=== PATIENT | male | born 1970 | race Caucasian/White ===

== ENCOUNTER 2016-11-09 09:25 | Inpatient (IN) | payer OTHER ==
--- NOTE | 2016-11-09 09:34 | EDPHY ---
H & P Time Seen by Provider: 11/09/16 09:31 HPI/ROS: CHIEF COMPLAINT: Right sided pain x5 days HISTORY OF PRESENT ILLNESS: 46-year-old male history of obesity, hypothyroid, arrives via ambulance complaining of right sided chest pain which is reproducible with light touch to the skin. The pain does not radiate. He has associated intermittent nausea and diarrhea. Denies: Dyspnea, back or flank pain, radiation of symptoms, neck or jaw pain, arm pain , rash, trauma, urinary abnormality. He has no known history of diabetes. Pre-hospital serum glucose was 247 PRIMARY CARE PROVIDER:[facility] REVIEW OF SYSTEMS: A ten point review of systems was performed and is negative with the exception of the items mentioned in the HPI PAST MEDICAL & SURGICAL HISTORY: Hypothyroid. SOCIAL HISTORY: nonsmoker. No drug use. No cocaine use. Works at [email or web address] PHYSICAL EXAM (Prior to examination, patient consented to physical exam, hands were washed and my usual and customary physical exam procedures followed) 1) GENERAL: obese, alert and oriented. Appears to be in no acute distress. 2) HEAD: Normocephalic, atraumatic 3) HEENT: Pupils equal, round, reactive to light bilaterally. Sclera anicteric. Nasopharynx, oropharynx, clear, no lesions. Ears bilaterally with normal tympanic membranes. 4) NECK: Full range of motion, no meningeal signs. No bruit 5) LUNGS: Clear auscultation bilaterally, no wheezes, no rhonchi, no retractions. He is tender to palpation with very light touch of the skin to the right mid axillary line of the chest. There is no visible rash visible or palpable abnormality. No vesicles. No erythema. No crepitus. 6) HEART: Regular rate and rhythm, no murmur, no heave, no gallop. 7) ABDOMEN: No guarding, no rebound, no focal tenderness, negative McBurney's, negative Ricks's, negative Rovsing's, negative peritoneal sign, 8) MUSCULOSKELETAL: Moving all extremities, no focal areas of tenderness, no obvious trauma. No peripheral edema or discoloration. 9) BACK: No CVA tenderness, no midline vertebral tenderness, no fluctuance, no step-off, no obvious trauma, no visual or palpable abnormality. 10) SKIN: No rash, no petechiae. 11) Psychiatric: Patient is oriented X 3, there is no agitation. DIFFERENTIAL DIAGNOSIS: In no particular order, including but not limited to myocardial ischemia, pulmonary embolus, chest wall pain, zoster, pleural inflammation and pulmonary infectious causes. Constitutional: Initial Vital Signs Temperature (C) 36.8 C 11/09/16 09:25 Heart Rate 123 H 11/09/16 09:25 Respiratory Rate 20 11/09/16 09:25 Blood Pressure 144/114 H 11/09/16 09:25 O2 Sat (%) 85 L 11/09/16 09:25 O2 Delivery Mode Nasal Cannula O2 (L/minute) 2 Allergies/Adverse Reactions: No Known Allergies Allergy (Unverified 11/09/16 09:34) Home Medications: Medication Instructions Recorded Levothyroxine [Synthroid 150 mcg 150 mcg PO DAILY06 11/09/16 (*)] Medical Decision Making - Diagnostics Imaging Results: Imaging Impressions Chest X-Ray 11/09/16 09:44 Impression: 1. Suspect airways disease although pulmonary markings are exaggerated by shallow inspiration. 2. There is borderline cardiac enlargement and equivocal pulmonary venous hypertension, possible low-grade congestive heart failure. Abdomen/Pelvis CT 11/09/16 11:37 Impression: 1. 8-mm proximal right ureteral stone with a punctate stone superior to it, causing moderate obstructive uropathy. 2. Bilateral nephrolithiasis including large branching stones in the right kidney. 3. Atrophy of the left kidney compared to the right. 4. Nonspecific adenopathy in the pelvis. If this has not been previously documented, recommend follow-up CT in three months. 5. Enlarged fatty liver. 6. Subacute, nondisplaced nearly healed anterior right sixth rib fracture. 7. Additional findings as above. Attention: This CT examination is specifically designed to evaluate patients who are clinically suspected of having acute obstructive uropathy. This examination does not use radiographic contrast, and as such, provides only a limited evaluation of the abdomen, pelvis and retroperitoneum. If there is further clinical suspicion for pathological conditions other than obstructive uropathy, a complete CT evaluation of the abdomen and pelvis utilizing intravenous and oral contrast should be considered. Images reviewed by myself ED Course/Re-evaluation: 9:34 a.m.: patient evaluated by myself, is complaining of right mid axillary pain reproducible with light palpation and no visible abnormality such as zoster. Symptoms have been occurring for several days already. Will obtain diagnostic data and re-evaluated. Discussed the case with secondary supervising physician Dr. Lujan 11:40 a.m.: Patient noted to have elevated creatinine of 6.6, unknown if acute or chronic as we have no comparison. 11:53 a.m.: Phone consultation with hospitalist Erica, admit to PCU Dr. Ramirez 12:10 p.m.: Phone consultation with hospitalist Dr. franco recommended starting the patient on 2 g of calcium gluconate, an ampule of bicarbonate 30 g of Kayexalate 12:48 p.m.: Phone consultation with Urology , he recommended interventional Radiology be contacted to have a percutaneous nephrostomy tube placed emergently 12:51 p.m.: Phone consultation with Dr. Chun interventional radiology who will plan on emergent percutaneous nephrostomy this afternoon - Data Points Laboratory Results: Laboratory Results 11/09/16 10:30 11/09/16 10:30 11/09/16 11/09/16 11/09/16 10:30 10:30 10:30 WBC RBC Hgb Hct MCV MCH MCHC RDW Plt Count MPV Neut % (Auto) Lymph % (Auto) Williamson % (Auto) Eos % (Auto) Baso % (Auto) Nucleat RBC Rel Count Absolute Neuts (auto) Absolute Lymphs (auto) Absolute Monos (auto) Absolute Eos (auto) Absolute Basos (auto) Absolute Nucleated RBC Immature Gran % Immature Gran # PT Pending INR Pending D-Dimer 0.81 ug/mLFEU H ug/mLFEU (0.00-0.50) Sodium 139 mEq/L mEq/L (134-144) Potassium 5.8 mEq/L H mEq/L (3.5-5.2) Chloride 105 mEq/L mEq/L (97-110) Carbon Dioxide 21 mEq/l L mEq/l (22-31) Anion Gap 13 mEq/L mEq/L (8-16) BUN 65 mg/dL H mg/dL (7-23) Creatinine 6.6 mg/dL H mg/dL (0.7-1.3) Estimated GFR 9 Glucose 204 mg/dL H mg/dL (70-100) Calcium 8.5 mg/dL mg/dL (8.5-10.4) Total Bilirubin 0.6 mg/dL mg/dL (0.1-1.4) Conjugated Bilirubin 0.5 mg/dL mg/dL (0.0-0.5) Unconjugated Bilirubin 0.1 mg/dL mg/dL (0.0-1.1) AST 20 IU/L IU/L (17-59) ALT 26 IU/L IU/L (21-72) Alkaline Phosphatase 115 IU/L IU/L (38-126) Troponin I < 0.012 ng/mL ng/mL (0-0.034) NT-Pro-B Natriuret Pep 73 pg/mL pg/mL (0-125) Total Protein 7.6 g/dL g/dL (6.3-8.2) Albumin 3.9 g/dL g/dL (3.5-5.0) Lipase 144.0 IU/L IU/L (23-300) TSH 166.000 uIU/mL H uIU/mL (0.465-4.680) 11/09/16 10:30 WBC 12.96 10^3/uL H 10^3/uL (3.80-9.50) RBC 5.67 10^6/uL 10^6/uL (4.40-6.38) Hgb 14.4 g/dL g/dL (13.7-17.5) Hct 47.1 % % (40.0-51.0) MCV 83.1 fL fL (81.5-99.8) MCH 25.4 pg L pg (27.9-34.1) MCHC 30.6 g/dL L g/dL (32.4-36.7) RDW 15.8 % H % (11.5-15.2) Plt Count 316 10^3/uL 10^3/uL (150-400) MPV 8.9 fL fL (8.7-11.7) Neut % (Auto) 70.5 % % (39.3-74.2) Lymph % (Auto) 15.5 % % (15.0-45.0) Williamson % (Auto) 8.5 % % (4.5-13.0) Eos % (Auto) 4.1 % % (0.6-7.6) Baso % (Auto) 0.6 % % (0.3-1.7) Nucleat RBC Rel Count 0.0 % % (0.0-0.2) Absolute Neuts (auto) 9.14 10^3/uL H 10^3/uL (1.70-6.50) Absolute Lymphs (auto) 2.01 10^3/uL 10^3/uL (1.00-3.00) Absolute Monos (auto) 1.10 10^3/uL H 10^3/uL (0.30-0.80) Absolute Eos (auto) 0.53 10^3/uL H 10^3/uL (0.03-0.40) Absolute Basos (auto) 0.08 10^3/uL 10^3/uL (0.02-0.10) Absolute Nucleated RBC 0.00 10^3/uL 10^3/uL (0-0.01) Immature Gran % 0.8 % % (0.0-1.1) Immature Gran # 0.10 10^3/uL 10^3/uL (0.00-0.10) PT INR D-Dimer Sodium Potassium Chloride Carbon Dioxide Anion Gap BUN Creatinine Estimated GFR Glucose Calcium Total Bilirubin Conjugated Bilirubin Unconjugated Bilirubin AST ALT Alkaline Phosphatase Troponin I NT-Pro-B Natriuret Pep Total Protein Albumin Lipase TSH Departure - Departure Disposition: [facility] Acute Clinical Impression: Uropathy, obstructive, Hyperkalemia, Hyperglycemia, Hypovolemia Acute renal failure Qualifiers: Acute renal failure type: unspecified Qualified Code(s): N17.9 - Acute kidney failure, unspecified Condition: Fair
[2016-11-09 10:47] LABS: % IMMATURE GRANULYOCYTES 0.8 % (0.0-1.1); ADD DIFF? NO; ADD MORPH? NO; ADD SCAN? NO; ATYPICAL LYMPHOCYTE FLAG 0 (0-99); FRAGMENT RBC FLAG 0 (0-99); HEMATOCRIT 47.1 % (40.0-51.0); HEMOGLOBIN 14.4 g/dL (13.7-17.5); LEFT SHIFT FLG 10 (0-99); LIPEMIA HEMOLYSIS FLAG 80 (0-99); MEAN CELL HEMOGLOBIN 25.4 pg (27.9-34.1); MEAN CELL HEMOGLOBIN CONCENTR. 30.6 g/dL (32.4-36.7); MEAN CELL VOLUME 83.1 fL (81.5-99.8); MEAN PLATELET VOLUME 8.9 fL (8.7-11.7); PLATELET CLUMPS FLAG 0 (0-99); PLATELET COUNT 316 10^3/uL (150-400); RED BLOOD CELL COUNT 5.67 10^6/uL (4.40-6.38); RED CELL DISTRIBUTION WIDTH 15.8 % (11.5-15.2)
--- NOTE | 2016-11-09 10:48 | CPEKG ---
Heart Rate: 119 RR Interval: 504 P-R Interval: 152 QRSD Interval: 112 QT Interval: 332 QTC Interval: 468 P Millwood: 46 QRS Millwood: 58 T Wave Millwood: 66 EKG Severity - ABNORMAL ECG - EKG Impression: SINUS TACHYCARDIA EKG Impression: NONSPECIFIC INTRAVENTRICULAR CONDUCTION DELAY Electronically Signed By: Thai Rowe 10-Nov-2016 08:05:02
[2016-11-09 11:19] LABS: ALANINE AMINOTRANSFERASE 26 IU/L (21-72); ALBUMIN 3.9 g/dL (3.5-5.0); ALKALINE PHOSPHATASE 115 IU/L (38-126); ANION GAP 13 mEq/L (8-16); ASPARTATE AMINOTRANSFERASE 20 IU/L (17-59); BILIRUBIN,TOTAL 0.6 mg/dL (0.1-1.4); BILIRUBIN-CONJUGATED 0.5 mg/dL (0.0-0.5); BILIRUBIN-UNCONJUGATED 0.1 mg/dL (0.0-1.1); CALCIUM 8.5 mg/dL (8.5-10.4); CARBON DIOXIDE 21 mEq/l (22-31); CHLORIDE 105 mEq/L (97-110); CREATININE 6.6 mg/dL (0.7-1.3); GLOMERULAR FILTRATION RATE 9; GLUCOSE 204 mg/dL (70-100); POTASSIUM 5.8 mEq/L (3.5-5.2); SODIUM 139 mEq/L (134-144); TOTAL PROTEIN 7.6 g/dL (6.3-8.2)
[2016-11-09 11:32] LABS: TROPONIN I < 0.012 ng/mL (0-0.034)
[2016-11-09] MEDS ORDERED: CALCIUM GLUCONATE 2 GM in D5W 50 ML IV ONE (12:09)
[2016-11-09] MEDS ORDERED: SODIUM POLY SULF 15 GM/60 ML BOTTLE PO ONE (12:10)
[2016-11-09] MEDS ORDERED: SODIUM BICARBONATE 50 MEQ/50 ML SYR IVP ONE (12:11)
[2016-11-09] MEDS ORDERED: NS 1,000 ML IV ONE ×2 (12:12→12:39)
[2016-11-09] MEDS ORDERED: SODIUM POLY SULF 15 GM/60 ML BOTTLE ONE (12:21)
[2016-11-09] MEDS ORDERED: TEMAZEPAM 15 MG CAP PO PRN (12:48)
[2016-11-09] MEDS ORDERED: ONDANSETRON DISINTEGRATING 4 MG TAB PO PRN (12:48)
[2016-11-09] MEDS ORDERED: oxyCODONE IR 5 MG TAB PO PRN (12:48)
[2016-11-09 12:57] LABS: INR 1.02 (0.83-1.16); PROTIME(PATIENT) 13.3 SEC (12.0-15.0)
--- NOTE | 2016-11-09 13:24 | GHP ---
[f rep st] HISTORY AND PHYSICAL DATE OF ADMISSION: 11/09/2016 CHIEF COMPLAINT: Right-sided flank pain. HISTORY OF PRESENT ILLNESS: This is a 46-year-old man, with a history of hypothyroidism who presents with right-sided flank pain. Pain started about a day ago, described as sharp. He has had somewhat decreased p.o. intake over the past few days. He has had no nausea, and no vomiting. He has had a few episodes of diarrhea. He has continued to urinate normally. He does not have any known diabetes. He has been diagnosed with high blood pressure, though has been off medications for the past few years. He took 2 Advil 2 days ago but has not taken any other NSAIDs. He is not taking anything other than Synthroid , including any other supplements. He has not noticed any dysuria, hematuria, or frothy-looking urine either. He has never had any kidney problems. I reviewed records from [facility] in 2012. His creatinine was 0.9 in June of 2012. PAST MEDICAL HISTORY/PAST SURGICAL HISTORY: Hypothyroid. MEDICATIONS: Synthroid. ALLERGIES: No known drug allergies. SOCIAL HISTORY: He occasionally drinks alcohol, he does not smoke. He works at [employer]. FAMILY HISTORY: His mother had renal problems, he is not sure of the etiology of this. REVIEW OF SYSTEMS: A 10-point review of systems is conducted and is negative except per HPI. PHYSICAL EXAM: VITAL SIGNS: Blood pressure 145/90, heart rate 108, respirations 22, saturating 92% on room air. He is afebrile. GENERAL: The patient is a pleasant man who appears comfortable, in no acute distress. HEENT : Shows him to be normocephalic, atraumatic. CARDIOVASCULAR: Regular rate and rhythm, no murmurs, rubs or gallops. PULMONARY: Lungs clear to auscultation bilaterally. CHEST: Shows him to be mildly tender to palpation over the right flank: ABDOMEN: Shows an obese abdomen. It is soft, otherwise nontender, no hepatosplenomegaly. SKIN: Shows no rash. : No Carter. NEUROLOGIC: Shows him to be alert and oriented x3, he is moving all extremities. PSYCHIATRIC: Shows a normal mood and affect. LABORATORY DATA: White count is 12.96, there is no left shift. D-dimer is 0.81 , potassium is 5.8, creatinine is 6.6, BUN is 65, TSH is 166. DATA: 1. I discussed this with Te Taylor, who will admit to med/surg. 2. I personally viewed and interpreted his abdominal CT, as well as reviewed the radiologist's report. It shows an 8 mm right ureteral stone. Left kidney is atrophic. He has a subacute right 6th rib fracture. He has an enlarged fatty liver. He has some adenopathy in his pelvis. 3. EKG shows sinus rhythm. He has borderline 1st degree AV block. There are no peaked T-waves, no QRS widening. 4. Chest x-ray shows borderline cardiomegaly, mildly increased pulmonary vasculature. IMPRESSION AND PLAN: A 46-year-old man with renal failure. 1. Renal failure, mild hyperkalemia: I suspect that this is due to right- sided obstructive uropathy with an atrophic left kidney. Also consider prerenal etiologies. He did take ibuprofen 2 days ago, but only 400 mg per his report. Urology has been consulted. Agree with placing an emergent, right- sided percutaneous nephrostomy tube to decompress the right kidney. Urinalysis is pending, including urine electrolytes. We will treat his hyperkalemia emergently with calcium gluconate, sodium bicarb, Kayexalate and intravenous fluids. We will recheck a basic metabolic panel immediately after he gets IV fluids. If his creatinine is not improving we will consult Nephrology. At this point I do not think he needs emergent dialysis. 2. Markedly hypothyroid with significantly elevated TSH: I have checked a T3 and T4. I note that he is on Synthroid. 3. Hyperglycemia: We will check an A1c. Would certainly predispose him to renal issues if he has diabetes, which I suspect he does. 4. Pelvic adenopathy: We will need a followup CT scan in 3 months. 5. Hepatic steatosis. 6. Venous thromboembolism risk is low. We will not give him prophylactic Lovenox. Addendum: - no improvement in renal function with IVF, discussed with Dr Rowe - she will consult - TSH and T3T4 reviewed - also discussed with Dr Díaz of endo; need to confirm with patient his compliance with synthroid and how to take it appropriately; Dr Díaz does not recommend IV synthroid in the absence of severe hypothyroid symptoms; should f/u endo as outpatient /[id number]/MODL MTDD
[2016-11-09] MEDS ORDERED: cefTRIAXone 2 GM in D5W 50 ML IV ONE (13:49)
[2016-11-09 14:40] LABS: ANION GAP 16 mEq/L (8-16); CALCIUM 9.2 mg/dL (8.5-10.4); CARBON DIOXIDE 23 mEq/l (22-31); CHLORIDE 101 mEq/L (97-110); CREATININE 6.7 mg/dL (0.7-1.3); GLOMERULAR FILTRATION RATE 9; GLUCOSE 212 mg/dL (70-100); POTASSIUM 5.8 mEq/L (3.5-5.2); SODIUM 140 mEq/L (134-144)
[2016-11-09] MEDS: NS 1,000 ML IV SCH (14:48)
[2016-11-09] MEDS ORDERED: DEXMEDETOMIDINE HCL 200 MCG in NS 50 ML IV ONE (15:00)
[2016-11-09] MEDS ORDERED: ALBUTEROL 3 ML DEYVIAL IH PRN (15:36)
[2016-11-09] MEDS ORDERED: NALOXONE HCL 0.4 MG/ML INJ ONE (16:19)
[2016-11-09] MEDS ORDERED: fentaNYL 100 MCG/2 ML INJ ONE ×2 (16:19→17:25)
[2016-11-09 16:36] LABS: HEMOGLOBIN A1C 9.8 % (4.0-6.0)
[2016-11-09] MEDS ORDERED: IOPAMIDOL (ISOVUE-300) 100 ML BTL ONE (16:49)
[2016-11-09] MEDS ORDERED: LIDOCAINE 1% 300 MG/30 ML SDV ONE (16:49)
[2016-11-09] MEDS ORDERED: MEPERIDINE 25 MG/ML SYR ONE (17:05)
--- NOTE | 2016-11-09 18:02 | POSTOPPROG ---
Post Op Note Date of Operation: 11/09/16 Surgeon: Vahe Chun Anesthesia: IV Sedation Pre-op Diagnosis: Obstructive right ureteral stone. Renal failure. Post-op Diagnosis: Same Indication: Hyperkalemia, renal failure. Atrophic left kidney. Procedure: Percutaneous right nephrostomy Findings: Occluded right ureter. Morbid obesity. Inf/Abcess present in the surg proc area at time of surgery?: No EBL: Minimal Complications: 0 Drains: Nephrostomy (10 F) Specimen(s): 10 ml bloody urine to lab for microbiology.
[2016-11-09 19:36] LABS: ANION GAP 12 mEq/L (8-16); CALCIUM 8.4 mg/dL (8.5-10.4); CARBON DIOXIDE 23 mEq/l (22-31); CHLORIDE 106 mEq/L (97-110); CREATININE 6.1 mg/dL (0.7-1.3); GLOMERULAR FILTRATION RATE 10; GLUCOSE 189 mg/dL (70-100); POTASSIUM 5.4 mEq/L (3.5-5.2); SODIUM 141 mEq/L (134-144)
[2016-11-10 04:43] LABS: ABSOLUTE IMMATURE GRANULOCYTES 0.13 10^3/uL (0.00-0.10); ADD DIFF? NO; ADD MORPH? YES; ADD SCAN? NO; ATYPICAL LYMPHOCYTE FLAG 0 (0-99); FRAGMENT RBC FLAG 0 (0-99); HEMATOCRIT 49.2 % (40.0-51.0); HEMOGLOBIN 14.2 g/dL (13.7-17.5); LEFT SHIFT FLG 0 (0-99); LIPEMIA HEMOLYSIS FLAG 70 (0-99); MEAN CELL HEMOGLOBIN 25.1 pg (27.9-34.1); MEAN CELL VOLUME 87.1 fL (81.5-99.8); MEAN PLATELET VOLUME 9.1 fL (8.7-11.7); PLATELET CLUMPS FLAG 0 (0-99); PLATELET COUNT 351 10^3/uL (150-400); RED BLOOD CELL COUNT 5.65 10^6/uL (4.40-6.38)
[2016-11-10 04:57] LABS: MEAN CELL HEMOGLOBIN CONCENTR. 28.9 g/dL (32.4-36.7)
[2016-11-10 05:40] LABS: PLATELET ESTIMATE ADEQUATE (ADEQ)
[2016-11-10 05:41] LABS: HYPOCHROMIA 2+; MICROCYTES 2+
[2016-11-10] MEDS: LEVOTHYROXINE 150 MCG TAB PO SCH (06:28)
[2016-11-10] MEDS: ACETAMINOPHEN 325 MG TAB PO PRN ×2 (09:40→17:13)
[2016-11-10 09:54] LABS: ANION GAP 14 mEq/L (8-16); CALCIUM 8.3 mg/dL (8.5-10.4); CARBON DIOXIDE 20 mEq/l (22-31); CHLORIDE 112 mEq/L (97-110); GLOMERULAR FILTRATION RATE 16; GLUCOSE 174 mg/dL (70-100); POTASSIUM 5.8 mEq/L (3.5-5.2); SODIUM 146 mEq/L (134-144)
[2016-11-10 10:06] LABS: COLOR YELLOW; LEUKOCYTE ESTERASE,URINE NEGATIVE (NEGATIVE); NITRITE,URINE NEGATIVE (NEGATIVE)
[2016-11-10 10:13] LABS: MUCUS TRACE /lpf (NONE-1+); RBC,URINE 25-50 /hpf (0-3)
--- NOTE | 2016-11-10 12:31 | GHP ---
[f rep st] HISTORY AND PHYSICAL DATE OF ADMISSION: 11/09/2016 REASON FOR CONSULTATION: 1. Renal failure. 2. Hypernatremia. 3. Hyperkalemia. RECOMMENDATIONS: 1. Restrict potassium in diet. 2. Follow response to the percutaneous nephrostomy. 3. Evaluate for underlying chronic kidney disease. 4. Follow for recovery. HISTORY: The patient is a 46-year-old male admitted yesterday through the emergency room with right -sided flank pain. The patient describes onset of symptoms approximately 5 days ago. He took a cou ple Advil because of the pain, but has not been doing so chronically. The patient has had poor oral intake, but he states he has been drinking fluids and urinating normally during this time. In the emergency room he was found to have an elevated creatinine of 6.6 with hyperkalemia, with a potassiu m of 5.8. Renal imaging showed an obstructing right ureteral stone, and an underlying atrophic left kidney. H e underwent a right percutaneous nephrostomy with Dr. Chun yesterday afternoon. With placement of this nephrostomy tube the patient has made copious urine. PAST MEDICAL HISTORY: For hypothyroidism and obesity. He states that he had thyroid problems that resulted in an enlarged heart and swelling, as well as hypertension back in 2012 or 2013. His medic al care has been provided through [facility]. His hospitalizations in the past have been at [facility]. We have no labs in the computer here, but per the admission H and P, his c reatinine was 0.9 back in June of 2012. The patient is morbidly obese. It sounds like he has been diagnosed with sleep apnea here in the [facility], and is currently on CPAP therapy as he is resting in bed. This is a new diagnosis for him. Past medical history as described, obesity, hypothyroidism, sleep apnea, enlarged heart, hypertensio n, volume overload with edema. PAST SURGICAL HISTORY: For tonsils at age 3 or 4. MEDICATIONS: Outpatient medications include Synthroid. SOCIAL HISTORY: He was born in [place], [place]. He moved to [place] at age 13. 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 He has a sister who is a teacher in [employer], who is involve d in his life. His brother works in parts at the [employer]. His mother and father passed carrie y. His father had complications of ulcers and at around age 72. His mother evidently had kidn ey problems and COPD. It sounds like her kidney problems may have been related to Aleve. She at age 70. He lives in an apartment here in [place]. It sounds like he gets around by bus. ALLERGIES: No known documented allergies. PHYSICAL EXAMINATION: VITAL SIGNS: He weighs 127 kilograms, temperature 36.7, pulse 103, respirati ons 18, blood pressure 123/90. APPEARANCE: A morbidly obese male, lying in bed. HEENT: Remarkabl e for facial plethora. NECK: Unremarkable. HEART: Regular with no extra heart sounds. LUNGS: G rossly clear. ABDOMEN: Obese but benign. EXTREMITIES: With edema that is trace in nature, with c hronic venous stasis changes. LABORATORY DATA: Labs initially showed a BUN of 66 with a creatinine of 6.6 with a potassium of 5.8 . Labs have just come back, have shown his BUN down to 40 with a creatinine of 4, but has developed some hypernatremia with a sodium of 146 and a potassium remaining elevated at 5.8. His thyroid shakeel ears to be inadequately replaced with TSH being elevated at 166, with free T4 being low. This sugge sts significant noncompliance with his thyroid replacement medication. Urinalysis shows blood witho ut protein, white count of 12.8 thousand, hematocrit of 49. ASSESSMENT: 1. Renal failure. On CAT scan he had obstructing right renal stones with bilateral nephrolithiasis . Left kidney is small compared to the right. The degree of asymmetry is not clearly stated on the CT report. Having abnormal anatomy in this setting is somewhat expected. The patient had a comple tely normal kidney on the left. This type of obstruction on the right would not be expected to caus e such an elevation in the patient's creatinine. Nonetheless, he did have a normal creatinine back a few years ago as documented in the history and physical by Dr. Ramirez. We will see if we can get some more recent serum creatinine measurements from his physicians at [facility]. 2. I suspect he has a history of underlying chronic kidney disease. We will see how good his creat inine gets with the above interventions. 3. Given his lack of proteinuria, I would simply check a serum protein electrophoresis and serum li ght chains to evaluate his chronic kidney disease. I would consider additional renal imaging if his creatinine does not come all the way back down to his prior baseline, just to get a better idea of his kidney size. 4. We should avoid nonsteroidals. Potassium sparing diuretics and IV contrast should be avoided. Given his improvement with nephrostomy placement, and the current electrolyte changes, I am going to increase the rate of fluid replacement the patient is receiving. 5. He is hyperkalemic. We will put him on a low-potassium diet. 6. He has an elevated TSH. We will see how he responds to his Synthroid currently, that is being g iven orally. Copy requested to: Muna Vidal /[id number]/MODL
[2016-11-10] MEDS ORDERED: SODIUM POLY SULF 15 GM/60 ML BOTTLE PO ONE (15:37)
--- NOTE | 2016-11-10 15:39 | HOSPPROG ---
Hospitalist Progress Note Assessment/Plan: # acute kidney injury- creatinine >6 at presentation- suspect some underlying CKD complicated by obstructive uropathy Urine output has been greater than 2 L overnight- oxygen saturations 93% on 2 L - percutaneous nephrostomy placed overnight - patient receiving IV fluid resuscitation - workup initiated for chronic kidney disease - nephrology following # hyperkalemia- secondary to acute kidney injury- potassium remains 5.8 this morning - 15 p.o. Kayexalate now - continue to monitor on telemetry - hopeful for improvement as RAFA resolves # acute obstructive uropathy- status post percutaneous nephrostomy - urology contacted on admission will consult # obstructive sleep apnea- providing CPAP while inpatient - will need polysomnography after discharged # prophylaxis- will start heparin subcu secondary to renal dysfunction # diet- change to renal # disposition greater than 2 midnights as the patient remains acutely quite ill requiring cardiac monitoring and treatment Have discussed the case with Nephrology will continue monitoring post placement of the percutaneous nephrostomy Subjective: Denies shortness of breath Objective: Vital Signs Temp Pulse Resp BP Pulse Ox 36.8 C 93 16 139/90 H 93 11/10/16 15:31 11/10/16 15:31 11/10/16 15:31 11/10/16 15:31 11/10/16 15:31 Microbiology 11/09/16 17:55 Gram Stain - Final Other - Aspirate Laboratory Results 11/10/16 03:39 11/10/16 09:08 11/09/16 11/10/16 11/11/16 05:59 05:59 05:59 Intake Total 3400 860 Output Total 2725 1175 Balance 675 -315 PT 13.3 SEC (12.0-15.0) 11/09/16 10:30 INR 1.02 (0.83-1.16) 11/09/16 10:30 - Physical Exam Constitutional: obese Eyes: anicteric sclera Ears, Nose, Mouth, Throat: moist mucous membranes Cardiovascular: regular rate and rhythym, tachycardia Respiratory: no respiratory distress, no rales or rhonchi Gastrointestinal: normoactive bowel sounds, soft, non-tender abdomen Genitourinary: no bladder fullness Skin: warm, normal color Musculoskeletal: No asymmetric calves Neurologic: AAOx3 Psychiatric: interacting appropriately Lymph, Heme, Immunologic: no cervical LAD ICD10 Worksheet Patient Problems: Problems Problem Status Onset Acute renal failure Acute Hyperglycemia Acute Hyperkalemia Acute Hypovolemia Acute Uropathy, obstructive Acute
[2016-11-10 17:26] LABS: ALBUMIN 3.5 g/dL (3.5-5.0); CALCIUM 8.4 mg/dL (8.5-10.4); CARBON DIOXIDE 24 mEq/l (22-31); CHLORIDE 106 mEq/L (97-110); CREATININE 3.3 mg/dL (0.7-1.3); GLOMERULAR FILTRATION RATE 20; GLUCOSE 166 mg/dL (70-100); SODIUM 143 mEq/L (134-144)
[2016-11-10 17:31] LABS: ANION GAP 13 mEq/L (8-16)
--- NOTE | 2016-11-10 19:08 | SOAPPROG ---
SOAP Progress Note Assessment/Plan: Assessment:Plan: ARF-baseline in June 2012 normal at 0[address] Ramirez's report -coming down better with increase in IVF -CPM Hyperkalemia-better with above -also received additional kayexalate from hospital team -I would manage any further increases with fluid adjustments 11/10/16 19:07 Objective: Vital Signs Temp Pulse Resp BP Pulse Ox 36.8 C 93 16 139/90 H 93 11/10/16 15:31 11/10/16 15:31 11/10/16 15:31 11/10/16 15:31 11/10/16 15:31 Microbiology 11/09/16 17:55 Gram Stain - Final Other - Aspirate Laboratory Results 11/10/16 03:39 11/10/16 16:12 11/09/16 11/10/16 11/11/16 05:59 05:59 05:59 Intake Total 3400 2360 Output Total 2725 1500 Balance 675 860 PT 13.3 SEC (12.0-15.0) 11/09/16 10:30 INR 1.02 (0.83-1.16) 11/09/16 10:30 ICD10 Worksheet Patient Problems: Problems Problem Status Onset Acute renal failure Acute Hyperglycemia Acute Hyperkalemia Acute Hypovolemia Acute Uropathy, obstructive Acute
[2016-11-10] MEDS: HEPARIN 5,000 UNIT/0.5 ML SYR SC SCH (21:08)
[2016-11-10] MEDS: NS 1,000 ML IV SCH (21:08)
[2016-11-11] MEDS: NS 1,000 ML IV SCH ×4 (02:00→20:12)
[2016-11-11 04:46] LABS: ALBUMIN 3.3 g/dL (3.5-5.0); ANION GAP 8 mEq/L (8-16); CALCIUM 7.7 mg/dL (8.5-10.4); CARBON DIOXIDE 26 mEq/l (22-31); CHLORIDE 106 mEq/L (97-110); CREATININE 2.5 mg/dL (0.7-1.3); GLOMERULAR FILTRATION RATE 28; GLUCOSE 158 mg/dL (70-100); POTASSIUM 4.8 mEq/L (3.5-5.2); SODIUM 140 mEq/L (134-144)
[2016-11-11] MEDS: HEPARIN 5,000 UNIT/0.5 ML SYR SC SCH ×3 (06:01→21:22)
[2016-11-11] MEDS: LEVOTHYROXINE 150 MCG TAB PO SCH (06:02)
--- NOTE | 2016-11-11 08:43 | SOAPPROG ---
MIAH Progress Note Assessment/Plan: Assessment:Plan: ARF-baseline in June 2012 normal at [address] Ramirez's report -coming down better with increase in IVF -CPM -expect creatinine to be 2 or less tomorrow -he could have outpatient renal follow up at that point to ensure he has complete recover -he should be seen in Nephrology 1-2 weeks after the stone is treated and the perc has been removed Nephrolithiasis with obstruction-responding nicely to percutaneous nephrostomy -he will need to be set up with Urology for further management of stone and perc -discussed with RN and patient Hyperkalemia-better with above -also received additional kayexalate from hospital team -I would manage any further increases with fluid adjustments -remains stable today Pulmonary-severe hypoxia at night -will need to be set up with outpatient therapy Dispo-home when above issues resolved, tomorrow at the earliest -patient eager for discharge 11/11/16 08:39 Subjective: feels okay Objective: Vital Signs Temp Pulse Resp BP Pulse Ox 37.1 C 79 20 132/87 H 94 11/11/16 07:50 11/11/16 07:50 11/11/16 07:50 11/11/16 07:50 11/11/16 07:50 Microbiology 11/09/16 17:55 Gram Stain - Final Other - Aspirate Laboratory Results 11/10/16 03:39 11/11/16 03:35 11/10/16 11/11/16 11/12/16 05:59 05:59 05:59 Intake Total 3400 6733 Output Total 2725 2750 725 Balance 675 3983 -725 PT 13.3 SEC (12.0-15.0) 11/09/16 10:30 INR 1.02 (0.83-1.16) 11/09/16 10:30 Physical Exam - Physical Exam General Appearance: alert, no apparent distress, obese EENT: normal ENT inspection, other (facial plethora) Neck: normal inspection Respiratory: lungs clear, normal breath sounds, No respiratory distress Cardiac/Chest: regular rate, rhythm Abdomen: normal bowel sounds, distended Skin: other (umchanged) ICD10 Worksheet Patient Problems: Problems Problem Status Onset Acute renal failure Acute Hyperglycemia Acute Hyperkalemia Acute Hypovolemia Acute Uropathy, obstructive Acute
--- NOTE | 2016-11-11 11:59 | HOSPPROG ---
Hospitalist Progress Note Assessment/Plan: # acute kidney injury- creatinine 6 at presentation-> 2.5 this am Suspect some underlying CKD complicated by obstructive uropathy- percutaneous nephrostomy placed on admit Urine output has been greater than 2 L again overnight- oxygen saturations 96 % on 3 L - patient receiving aggressive IV fluid resuscitation - workup initiated for chronic kidney disease - nephrology following - nephrostomy in place # hyperkalemia- secondary to acute kidney injury- potassium 5.8 received kayexelate x 1 and IVF overnight - > 4.8 this am - continue to monitor daily # acute obstructive uropathy- status post percutaneous nephrostomy CT abdomen (personally reviewed and interpreted) 8mm proximal right ureteral stone - urology Dr. Ang contacted on admission # obstructive sleep apnea- providing CPAP while inpatient - will need polysomnography after discharged # hyperglycemia - HBA1c pending # prophylaxis- will start heparin subcutaneous secondary to renal dysfunction # diet- change to renal # disposition greater than 2 midnights as the patient remains acutely quite ill requiring cardiac monitoring and treatment of RAFA Have discussed the case with RN - we will encourage increased activity today as the beginning preparations for disposition Subjective: feeling better today Objective: Vital Signs Temp Pulse Resp BP Pulse Ox 36.4 C 101 H 20 143/84 H 96 11/11/16 11:14 11/11/16 11:14 11/11/16 11:14 11/11/16 11:14 11/11/16 11:14 Microbiology 11/09/16 17:55 Gram Stain - Final Other - Aspirate Laboratory Results 11/10/16 03:39 11/11/16 03:35 11/10/16 11/11/16 11/12/16 05:59 05:59 05:59 Intake Total 3400 6733 860 Output Total 2725 2750 1550 Balance 675 3983 -690 PT 13.3 SEC (12.0-15.0) 11/09/16 10:30 INR 1.02 (0.83-1.16) 11/09/16 10:30 - Physical Exam Constitutional: no apparent distress, obese Eyes: anicteric sclera Ears, Nose, Mouth, Throat: moist mucous membranes Cardiovascular: regular rate and rhythym Respiratory: no respiratory distress, no rales or rhonchi Gastrointestinal: normoactive bowel sounds Genitourinary: no bladder fullness Skin: warm Musculoskeletal: No asymmetric calves Neurologic: AAOx3 Psychiatric: interacting appropriately Lymph, Heme, Immunologic: no cervical LAD ICD10 Worksheet Patient Problems: Problems Problem Status Onset Acute renal failure Acute Hyperglycemia Acute Hyperkalemia Acute Hypovolemia Acute Uropathy, obstructive Acute
[2016-11-12] MEDS: ACETAMINOPHEN 325 MG TAB PO PRN (04:01)
[2016-11-12 04:43] LABS: ALBUMIN 3.4 g/dL (3.5-5.0); ANION GAP 8 mEq/L (8-16); CALCIUM 8.2 mg/dL (8.5-10.4); CARBON DIOXIDE 25 mEq/l (22-31); CHLORIDE 107 mEq/L (97-110); CREATININE 1.9 mg/dL (0.7-1.3); GLOMERULAR FILTRATION RATE 38; GLUCOSE 155 mg/dL (70-100); POTASSIUM 5.1 mEq/L (3.5-5.2); SODIUM 140 mEq/L (134-144)
[2016-11-12] MEDS: HEPARIN 5,000 UNIT/0.5 ML SYR SC SCH (05:28)
[2016-11-12] MEDS: LEVOTHYROXINE 150 MCG TAB PO SCH (05:28)
--- NOTE | 2016-11-12 09:52 | PDIAF ---
- Diagnosis Diagnosis: RAFA Code Status: Full Code - Medication Management Discharge Medications: Medications to Continue on Transfer Levothyroxine [Synthroid 150 mcg (*)] 150 mcg PO DAILY06 11/09/16 [Last Taken ] Discharge Medications: Refer to the Discharge Home Medication list for PRN reason. - Orders Services needed: Home Care, Registered Nurse Home Care Face to Face: I certify that this patient was under my care and that I had the required [id number] encounter meeting the encounter requirements on the discharge day. My findings support the fact that the patient is homebound as defined in CMS Chapter 7 Medicare Benefits Manual 30.1.1, The condition of the patient is such that there exists a normal inability to leave home and consequently, leaving home would require a considerable and taxing effort. Diet Recommendation: other (renal diet) Diet Texture: Regular Texture Diet Equipment: Daily flush of nephrostomy tube - Labs/Radiology BMP Date: 11/15/16 (call results to Sorin bell) - Follow Up Care Current Providers and Referrals: Patient,NotPresent [Unknown] - As per Instructions Macho Rowell MD [Medical Doctor] - Les Ang MD [Medical Doctor] -
[2016-11-12 11:46] VITALS: BP 146/92; PULSE 84; RESP 18; TEMP 99.1
[2016-11-12 12:23] VITALS: O2SAT 86
--- NOTE | 2016-11-12 13:39 | SOAPPROG ---
SOAP Progress Note Assessment/Plan: Assessment:Plan: ARF-baseline in June 2012 normal at [address] Ramirez's report -coming down better with increase in IVF -down from 2.5 to 1.9 overnite -expect creatinine to be 2 or less tomorrow -he will need outpatient renal follow up at that point to ensure he has complete recovery -he should be seen in Nephrology 1-2 weeks after the stone is treated and the perc has been removed Nephrolithiasis with obstruction-responding nicely to percutaneous nephrostomy -he has been set up with Urology for further management of stone and perc -discussed with RN and patient -he can place the nephrostomy bag in an apron under his clothes for support Hyperkalemia-resolved -remains stable today Pulmonary-severe hypoxia at night -will need to be set up with outpatient therapy Dispo-home today -patient eager for discharge and to go back to work -he feels he can return to his normal duties with minimal accommodation -I gave him a note for work 11/12/16 13:38 Subjective: feels okay, wants to work tomorrow Objective: Vital Signs Temp Pulse Resp BP Pulse Ox 37.3 C 84 18 146/92 H 86 L 11/12/16 11:45 11/12/16 11:45 11/12/16 11:45 11/12/16 11:45 11/12/16 12:23 Microbiology 11/09/16 17:55 Gram Stain - Final Other - Aspirate Laboratory Results 11/10/16 03:39 11/12/16 03:45 11/11/16 11/12/16 11/13/16 05:59 05:59 05:59 Intake Total 6733 1560 360 Output Total 2750 4675 550 Balance 3983 -3115 -190 PT 13.3 SEC (12.0-15.0) 11/09/16 10:30 INR 1.02 (0.83-1.16) 11/09/16 10:30 Physical Exam - Physical Exam General Appearance: alert, no apparent distress, obese EENT: normal ENT inspection Neck: normal inspection Respiratory: lungs clear, normal breath sounds, No respiratory distress Cardiac/Chest: regular rate, rhythm Abdomen: normal bowel sounds, distended Extremities: swelling (unchanged) ICD10 Worksheet Patient Problems: Problems Problem Status Onset Acute renal failure Acute Hyperglycemia Acute Hyperkalemia Acute Hypovolemia Acute Uropathy, obstructive Acute
--- NOTE | 2016-11-12 15:13 | GDS ---
[f rep st] DISCHARGE SUMMARY DISCHARGE DIAGNOSES: 1. Acute kidney injury. 2. Suspected chronic kidney disease. 3. Acute obstructive uropathy secondary to right ureteral stone, status post percutaneous nephrosto my. 4. Suspected obstructive sleep apnea. 5. Severe hyperkalemia, resolved. 6. Hyperglycemia. HISTORY OF PRESENT ILLNESS: A 46-year-old male who presented on 11/09/2016, with complaints of righ t-sided flank pain. For details of patient's initial presentation, please see the history and physi monique dated 11/09/2016. CONSULTATIVE SERVICES: Nephrology. PROCEDURES: On 11/09/2016, patient underwent percutaneous nephrostomy drain placement. HOSPITAL COURSE BY ISSUE: 1. Acute kidney injury. The patient presented with a creatinine greater than 6, thought likely sec ondary to obstructive uropathy and hypovolemia. Patient was aggressively fluid resuscitated and had excellent urine output status post percutaneous nephrostomy placement. The patient's creatinine on the day of disposition has improved to 1.9. He will have laboratories checked next week and called to Dr. Rowell. He is to remain hydrated and have his nephrostomy followed in Dr. Ang's office po st disposition to address his right ureteral stone. 2. Acute obstructive uropathy. As above, the patient is being discharged with a percutaneous nephr ostomy drain and follow with outpatient Urology. 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 He will call his office for a followup appointment. 3. Suspected obstructive sleep apnea, as well as obesity hypoventilation syndrome. The patient was quite hypoxic in the evenings here. We did initiate CPAP in the hospital. He is being discharged with recommendations for outpatient referral for polysomnography. We are providing supplemental oxy gen. There may be a component of volume overload related to his acute kidney injury. Suspect he wi ll be able to get off daytime oxygen in the near future. 4. Severe hyperkalemia. Patient never developed EKG changes, had resolution with fluid resuscitati on. On the day of disposition, his potassium levels are normal. 5. Hyperglycemia. Suspect the patient may have prediabetes. We did send a hemoglobin A1c which is pending at the time of his discharge. MEDICATIONS AT TIME OF DISPOSITION: Please reference medication reconciliation printed on 7. FOLLOWUP APPOINTMENTS: 1. With Dr. Rowell for postdischarge followup of his acute and chronic kidney disease. 2. With Dr. Ang from Urology for outpatient followup of his right obstructing ureteral stone and percutaneous nephrostomy tube. PENDING STUDIES: Chronic kidney disease laboratories, SPEP, as well as a hemoglobin A1c. BILLING: I spent greater than 30 minutes in the planning and coordination of this discharge. /[id number]/MODL
[2016-11-13 02:10] LABS: HEMOGLOBIN A1C 9.9 % (4.0-6.0)
[2016-11-13 10:57] LABS: IG KAPPA FREE LIGHT CHAIN 5.96 mg/dL; IG LAMBDA FREE LIGHT CHAIN 3.7 mg/dL; KAPPA/LAMBDA RATIO 1.61
== END 2016-11-12 14:30 | disposition home health service (06) | DRG 660 ==
LOC: OBSVTOIN 11:51 → F2W 14:24
PROVIDERS: ADMIT Student in an Organized Health Care Education/Training Program; ATTEND Student in an Organized Health Care Education/Training Program
PROC: 0T133JD Bypass Right Kidney Pelvis to Cutaneous with Synthetic Substitute, Percutaneous Approach (ICD-10-PCS; principal; 2016-11-09 18:00)
DX: N17.9 Acute kidney failure, unspecified (principal); N20.1 Calculus of ureter; N18.9 Chronic kidney disease, unspecified; N13.9 Obstructive and reflux uropathy, unspecified; G47.33 Obstructive sleep apnea (adult) (pediatric); R73.9 Hyperglycemia, unspecified; E66.9 Obesity, unspecified; E87.5 Hyperkalemia; E03.9 Hypothyroidism, unspecified
CPT/HCPCS: 84480-90; 86334-90; 96374; C1729; C1769; J0610; J0696; J1644; J2310; J3010; Q9967

== ENCOUNTER → 2016-11-14 | Day surgery (SDC) | payer OTHER | END | disposition home or self-care (01) | LOC: FIMAGING 16:05 | PROVIDERS: ATTEND Specialist | DX: Z43.6 Encounter for attention to other artificial openings of urinary tract (principal); Z96.0 Presence of urogenital implants; R21 Rash and other nonspecific skin eruption ==

== ENCOUNTER 2016-11-17 20:32 | Emergency (ER) | payer OTHER ==
[2016-11-17 20:39] VITALS: TEMP 98.6
--- NOTE | 2016-11-17 20:59 | EDPHY ---
H & P Stated Complaint: leaking nephrostomy tube Time Seen by Provider: 11/17/16 21:03 HPI/ROS: CHIEF COMPLAINT: Nephrostomy tube complication HISTORY OF PRESENT ILLNESS: This patient is a 46-year-old male status post percutaneous nephrostomy on 11/09/2016 who presents to the Emergency Department complaining of fluid leaking from his nephrostomy tube beginning at 1800 tonight. He was seen in the ED on 11/09 for complaint of right flank pain and was found to have acute obstructive uropathy secondary to right ureteral stone with acute kidney injury for which he was admitted and subsequently discharged on 11/12. At that time a nephrostomy tube was placed by interventional radiologist. At time of arrival tonight, he has no complaints apart from the fluid leakage from his tube. He denies flank pain, abdominal pain, fever or chills, or pain at the site of the incision. REVIEW OF SYSTEMS: A ten point review of systems was performed and is negative with the exception of the items mentioned in the HPI. Source: Patient - Personal History Current Tetanus/Diphtheria Vaccine: Yes Current Tetanus Diphtheria and Acellular Pertussis (TDAP): Yes - Medical/Surgical History PMH: 1. Obstructive uropathy secondary to right ureteral stone, status post percutaneous nephrostomy (11/09/2016) 2. Suspected chronic kidney disease 3. Hyperkalemia 4. Hyperglycemia 5. Cardiomegaly 6. Hypertension 7. Hypothyroid Hx Asthma: No Hx Chronic Respiratory Disease: No Hx Diabetes: No Hx Cardiac Disease: No Hx Renal Disease: No Hx Cirrhosis: No Hx Alcoholism: No Hx HIV/AIDS: No Hx Splenectomy or Spleen Trauma: No Other PMH: 1. Hypothyroid. 2. Ureterolithiasis. 3. Obesity. 4. Cardiomegaly. 5. Hypertension - Social History Smoking Status: Never smoked Additional Social History: He lives independently. He is single. He is employed at [employer]. - Physical Exam Exam: General Appearance: Alert. Vital signs reviewed. Blood pressure 167/108. Hypoxemic at 97% on RA. Focused exam performed. Lungs: Clear to auscultation. Heart: Regular rate and rhythm. Abdomen: Obese, soft and nontender. Back: No CVAT. Right nephrostomy tube in place. Surrounding skin is moist secondary to significant fluid leakage. The dressing is wet. His clothing is wet. It is unclear from where the fluid is leaking but appears to be building up around the site of the incision. Neuro: Awake and alert. Moving all 4 extremities easily and equally. Psych: Normal affect. Constitutional: Initial Vital Signs Temperature (C) 37 C 11/17/16 20:36 Heart Rate 100 11/17/16 20:36 Respiratory Rate 16 11/17/16 20:36 Blood Pressure 167/108 H 11/17/16 20:36 O2 Sat (%) 86 L 11/17/16 20:36 O2 Delivery Mode Room Air O2 (L/minute) 3 Allergies/Adverse Reactions: No Known Allergies Allergy (Verified 11/18/16 07:43) Home Medications: Medication Instructions Recorded Levothyroxine [Synthroid 150 mcg 150 mcg PO DAILY06 11/09/16 (*)] Medical Decision Making ED Course/Re-evaluation: This 46-year-old male presents with leakage from his right nephrostomy tube placed on 11/09. There is significant leakage on exam though it is unclear from where the fluid is leaking. The patient has no additional complaints. There are no additional significant findings on exam. Prior medical records were reviewed by myself; nephrostomy placement was performed by Dr. Vahe Chun, radiology. 2123: Consultation with Dr. Chun, radiologist, who will repair the nephrostomy tube. Apparently, the patient had a similar issue with his nephrostomy tube earlier this week and was evaluated at a clinic. Our RN spoke with clinic staff who recommended that we ensure appropriate stopcock alignment. It turns out that the stopcock is not appropriately aligned. We will monitor fluid output following alteration of this alignment. I spoke with Dr. Chun who agrees with this; he will visit the patient in the ED should the issue persist. The patient was monitored for two hours in the ED. Nephrostomy tube dressing was replaced. I do not suspect malfunctioning or clogging of the nephrostomy. There is no evidence of leakage and fluid output is appropriate. He was taught how to assess the alignment of the stopcock and proper positioning was reviewed. I discussed return precautions and at home care instructions with the patient. He will be discharged home in good condition. Departure - Departure Disposition: Home, Routine, Self-Care Clinical Impression: Malfunction of nephrostomy tube Condition: Good Instructions: Nephrostomy Tube Care (ED) Additional Instructions: 1. Continue with the treatment plan outlined when your were originally discharged from the hospital including reevaluations and dressing changes as scheduled. 2. Ensure that the stopcock on your nephrostomy tube remains appropriately aligned as we discussed. 2. Return to the Emergency Department with fluid leakage from your nephrostomy tube, fever or chills, pain at the site of the tube placement, or for other serious concerns. Referrals: Trudy Avina, PAC [Primary Care Provider] - As per Instructions Report Scribed for: Amparo Gusman Report Scribed by: Claudia Qiu Date of Report: 11/17/16 Time of Report: 21:22 Physician Review and Approval Statement: 11/17/16 20:59 Portions of this note were transcribed by the medical accounts receivable specialist. I, Dr. Amparo Gusman, personally performed the history, physical exam, and medical decision- making; and confirmed the accuracy of the information in the transcribed note.
[2016-11-17 23:16] VITALS: BP 160/96; PULSE 95; RESP 20; O2SAT 91
== END 2016-11-17 23:14 | disposition home or self-care (01) ==
DX: N99.522 Malfunction of incontinent external stoma of urinary tract (principal); I10 Essential (primary) hypertension

== ENCOUNTER 2016-11-18 07:41 | Emergency (ER) | payer OTHER ==
[2016-11-18 07:52] VITALS: BP 155/95; PULSE 84; RESP 18; TEMP 97.5; O2SAT 94
--- NOTE | 2016-11-18 08:26 | EDPHY ---
H & P Stated Complaint: nephrostomy tube post kikney stones is leaking Time Seen by Provider: 11/18/16 07:50 HPI/ROS: Chief complaint: Nephrostomy tube is leaking History of present illness: This is a 46-year-old male who presents to the emergency department concerned his nephrostomy tube is leaking. Patient had the tube placed 10 days ago at this facility for an obstructive stone. He has had intermittent problems with leaking most recently yesterday. On multiple occasions he has had problems with the valve.However, he believes the valve is open and functioning currently. He denies any new signs or symptoms including no pain, no fevers or chills, no abdominal pain, no back pain, no nausea or vomiting. - Personal History Current Tetanus/Diphtheria Vaccine: Yes - Medical/Surgical History Hx Asthma: No Hx Chronic Respiratory Disease: No Hx Diabetes: No Hx Cardiac Disease: No Hx Renal Disease: Yes Hx Cirrhosis: No Hx Alcoholism: No Hx HIV/AIDS: No Hx Splenectomy or Spleen Trauma: No Other PMH: Hypothyroid, Enlarged heart, htn, kidney stones, nephrostomy, - Social History Smoking Status: Never smoked - Physical Exam Exam: General Appearance: Alert, nontoxic. Eyes: Pupils equal and round no injection. Respiratory: Chest is non tender, lungs are clear to auscultation. Cardiac: regular rate and rhythm Gastrointestinal: Abdomen is soft and non tender, no masses, bowel sounds normal. Musculoskeletal: Neck is supple and non tender. Extremities have full range of motion and are non tender. Skin: No rashes or lesions. Nephrostomy tube in place in the right midback without surrounding changes consistent with infection. Constitutional: Initial Vital Signs Temperature (C) 36.4 C 11/18/16 07:45 Heart Rate 84 11/18/16 07:45 Respiratory Rate 18 11/18/16 07:45 Blood Pressure 155/95 H 11/18/16 07:45 O2 Sat (%) 94 11/18/16 07:45 O2 Delivery Mode Room Air Allergies/Adverse Reactions: No Known Allergies Allergy (Verified 11/18/16 07:43) Home Medications: Medication Instructions Recorded Levothyroxine [Synthroid 150 mcg 150 mcg PO DAILY06 11/09/16 (*)] Medical Decision Making ED Course/Re-evaluation: Patient seen under the supervision of my secondary supervising physician Dr. Navneet Cabral. Patient presents to the emergency department concerned his nephrostomy tube is leaking. There is evidence of leaking on exam. I have consulted with Dr. Haley Allison of interventional radiology. She is familiar with this patient. She requests the stopcock be removed. 10 cc of saline be flushed towards the kidney and that the bag be hooked up without a valve. Patient can be discharged. She will call patient today to bring him back to the hospital this afternoon for evaluation of placement. I have discussed this plan with the patient who voiced understanding and agreement with it. Departure - Departure Disposition: Home, Routine, Self-Care Clinical Impression: Obstructed nephrostomy tube Condition: Good Instructions: Nephrostomy Tube Care (ED) Additional Instructions: You will receive a call from interventional radiology today to come to their office for evaluation this afternoon If symptoms worsen or new symptoms develop return to the emergency room for recheck Referrals: Trudy Avina, PAC [Primary Care Provider] - As per Instructions
== END 2016-11-18 09:14 | disposition home or self-care (01) ==
DX: T83.032A Leakage of nephrostomy catheter, initial encounter (principal); I10 Essential (primary) hypertension; Y82.8 Other medical devices associated with adverse incidents

== ENCOUNTER 2016-11-19 07:27 | Emergency (ER) | payer OTHER ==
[2016-11-19 07:36] VITALS: TEMP 98.1
--- NOTE | 2016-11-19 08:15 | EDPHY ---
H & P Time Seen by Provider: 11/19/16 07:57 HPI/ROS: CHIEF COMPLAINT: Nephrostomy tube leaking HISTORY OF PRESENT ILLNESS: 46-year-old male presents to the emergency department by private vehicle with concerns about ongoing problems with his nephrostomy tube. The patient had a right obstructive uropathy diagnosed 2016. He had a nephrostomy tube placed and has had problems with the catheter not flowing properly. He has been seen 3 times in the last few days with leaking from the catheter site. The patient was seen in the emergency department yesterday and apparently [facility] was supposed to contact the patient for an appointment in the afternoon, however he was never contacted. Continued to have leaking from the nephrostomy tube and presented to the emergency department for evaluation. He states physically he otherwise feels fine. He denies flank pain. Denies abdominal pain. His appetite has been normal. No vomiting or diarrhea. He has been urinating normally. He denies dysuria, urgency or frequency with urination. Denies hematuria. No fevers or chills. No chest pain or difficulty breathing. He was placed on oxygen when this 1st started over 1 week ago. Prior to this, he has never had a kidney stone and never required supplemental oxygen. REVIEW OF SYSTEMS: Constitutional: No fever, no chills. Eyes: No double or blurry vision. ENT: No sore throat. Respiratory: No cough, no shortness of breath. Cardiac: No chest pain. Gastrointestinal: No abdominal pain, vomiting or diarrhea. Genitourinary: No dysuria. Musculoskeletal: No neck or back pain. Skin: No rashes. Neurological: No headache. Past Medical/Surgical History: Hypothyroidism, enlarged heart, hypertension, kidney stone, nephrostomy tube right kidney Social History: Single Smoking Status: Never smoked Physical Exam: General Appearance: Alert, no distress. Afebrile. 151/108, 91% on nasal cannula oxygen, heart rate 96 Eyes: Pupils equal and round. Extraocular motions are all intact. ENT: Mouth: Mucous membranes moist. Respiratory: No wheezing, rhonchi, or rales, lungs are clear to auscultation. Cardiovascular: Regular rate and rhythm. Gastrointestinal: Abdomen is obese and soft and nontender, no masses, no rebound or guarding, bowel sounds normal. No CVA tenderness bilaterally. Patient has a nephrostomy tube noted at the right flank inferior aspect. The dressing is noted to be saturated and draining urine. Very little urine in the bag. Neurological: Alert and oriented x 3, cranial nerves II through XII grossly intact Skin: Warm and dry, no rashes. Musculoskeletal: Nontender to palpate along the cervical, thoracic or lumbar spine. Neck is supple. Extremities: Full range of motion and no peripheral edema. Psychiatric: Patient is oriented X 3, there is no agitation. Constitutional: Initial Vital Signs Temperature (C) 36.7 C 11/19/16 07:34 Heart Rate 96 11/19/16 07:34 Respiratory Rate 17 11/19/16 07:34 Blood Pressure 151/108 H 11/19/16 07:34 O2 Sat (%) 91 L 11/19/16 07:34 O2 Delivery Mode Nasal Cannula O2 (L/minute) 3 Allergies/Adverse Reactions: No Known Allergies Allergy (Verified 11/19/16 07:33) Home Medications: Medication Instructions Recorded Levothyroxine [Synthroid 150 mcg 150 mcg PO DAILY06 11/09/16 (*)] Cephalexin [Keflex] 500 mg PO QID #28 cap 11/19/16 Medical Decision Making - Diagnostics Imaging Results: Imaging Impressions Nephrostomy Tube Change 11/19/16 08:40 Impression: 1. Leakage is at the stopcock and tubing connection. The stopcock apparently was not removed yesterday. 2. New tube advanced into renal pelvis, this time connected directly to gravity drainage bag without a stopcock. The patient does not need to flush this tube. It was draining adequately when the patient left the department. Imaging: Discussed imaging studies w/ rn call center Radiologist ED Course/Re-evaluation: 46-year-old male presents to the emergency department with malfunctioning nephrostomy tube. Laboratory studies were drawn the patient has improving creatinine of 1.7. His potassium is normal. The patient is not complaining of any flank pain. Spoke with Dr. Allison from [facility] who will come to replace the patient's nephrostomy tube. The patient went to [facility] for nephrostomy tube replacement. He had drainage of urine into the bag without leaking. The patient was given 1 g of ceftriaxone IV in the emergency department and discharged home with Keflex. He has a scheduled appointment with his urologist and then will see his sleeve turner. Was encouraged to return to the emergency department if he developed a fever, if he developed abdominal or back pain, or if he seemed worse in any way. Differential Diagnosis: Including but not limited to nephrostomy tube malposition, pyelonephritis, obstructive uropathy, acute kidney injury, electrolyte abnormality - Data Points Laboratory Results: Laboratory Results 11/19/16 09:07 11/19/16 09:07 11/19/16 11/19/16 09:07 09:07 WBC 10.57 10^3/uL H 10^3/uL (3.80-9.50) RBC 5.47 10^6/uL 10^6/uL (4.40-6.38) Hgb 13.5 g/dL L g/dL (13.7-17.5) Hct 45.8 % % (40.0-51.0) MCV 83.7 fL fL (81.5-99.8) MCH 24.7 pg L pg (27.9-34.1) MCHC 29.5 g/dL L g/dL (32.4-36.7) RDW 15.6 % H % (11.5-15.2) Plt Count 362 10^3/uL 10^3/uL (150-400) MPV 8.8 fL fL (8.7-11.7) Neut % (Auto) 68.6 % % (39.3-74.2) Lymph % (Auto) 16.0 % % (15.0-45.0) [place] % (Auto) 9.1 % % (4.5-13.0) Eos % (Auto) 4.9 % % (0.6-7.6) Baso % (Auto) 0.7 % % (0.3-1.7) Nucleat RBC Rel Count 0.0 % % (0.0-0.2) Absolute Neuts (auto) 7.26 10^3/uL H 10^3/uL (1.70-6.50) Absolute Lymphs (auto) 1.69 10^3/uL 10^3/uL (1.00-3.00) Absolute Monos (auto) 0.96 10^3/uL H 10^3/uL (0.30-0.80) Absolute Eos (auto) 0.52 10^3/uL H 10^3/uL (0.03-0.40) Absolute Basos (auto) 0.07 10^3/uL 10^3/uL (0.02-0.10) Absolute Nucleated RBC 0.00 10^3/uL 10^3/uL (0-0.01) Immature Gran % 0.7 % % (0.0-1.1) Immature Gran # 0.07 10^3/uL 10^3/uL (0.00-0.10) Sodium 138 mEq/L mEq/L (134-144) Potassium 4.4 mEq/L mEq/L (3.5-5.2) Chloride 101 mEq/L mEq/L (97-110) Carbon Dioxide 27 mEq/l mEq/l (22-31) Anion Gap 10 mEq/L mEq/L (8-16) BUN 22 mg/dL mg/dL (7-23) Creatinine 1.7 mg/dL H mg/dL (0.7-1.3) Estimated GFR 43 Glucose 158 mg/dL H mg/dL (70-100) Calcium 8.9 mg/dL mg/dL (8.5-10.4) Medications Given: Discontinued Medications Ceftriaxone Sodium/Dextrose (Rocephin 1 Gm (Premix)) 50 mls @ 100 mls/hr IV EDNOW ONE PRN Reason: Protocol Stop: 11/19/16 09:41 Last Admin: 11/19/16 09:32 Dose: 50 mls Departure - Departure Disposition: Home, Routine, Self-Care Clinical Impression: Nephrostomy tube displaced Condition: Good Instructions: Nephrostomy Tube Care (ED) Additional Instructions: Keflex as directed for one week. Keep scheduled appointment with urologist and sleeve turner. Return to the emergency department if you develop a fever, increasing pain, or if you feel worse in any way. Referrals: Trudy Avina, PAC [Primary Care Provider] - As per Instructions Prescriptions: Cephalexin [Keflex] 500 mg PO QID #28 cap
[2016-11-19 09:20] LABS: % IMMATURE GRANULYOCYTES 0.7 % (0.0-1.1); ABSOLUTE IMMATURE GRANULOCYTES 0.07 10^3/uL (0.00-0.10); ADD DIFF? NO; ADD MORPH? NO; ADD SCAN? NO; ATYPICAL LYMPHOCYTE FLAG 0 (0-99); FRAGMENT RBC FLAG 0 (0-99); HEMATOCRIT 45.8 % (40.0-51.0); HEMOGLOBIN 13.5 g/dL (13.7-17.5); LEFT SHIFT FLG 0 (0-99); LIPEMIA HEMOLYSIS FLAG 70 (0-99); MEAN CELL HEMOGLOBIN 24.7 pg (27.9-34.1); MEAN CELL HEMOGLOBIN CONCENTR. 29.5 g/dL (32.4-36.7); MEAN CELL VOLUME 83.7 fL (81.5-99.8); MEAN PLATELET VOLUME 8.8 fL (8.7-11.7); PLATELET CLUMPS FLAG 0 (0-99); PLATELET COUNT 362 10^3/uL (150-400); RED BLOOD CELL COUNT 5.47 10^6/uL (4.40-6.38); RED CELL DISTRIBUTION WIDTH 15.6 % (11.5-15.2)
[2016-11-19 09:33] LABS: ANION GAP 10 mEq/L (8-16); CALCIUM 8.9 mg/dL (8.5-10.4); CARBON DIOXIDE 27 mEq/l (22-31); CHLORIDE 101 mEq/L (97-110); CREATININE 1.7 mg/dL (0.7-1.3); GLOMERULAR FILTRATION RATE 43; GLUCOSE 158 mg/dL (70-100); POTASSIUM 4.4 mEq/L (3.5-5.2); SODIUM 138 mEq/L (134-144)
[2016-11-19] MEDS ORDERED: fentaNYL 100 MCG/2 ML INJ ONE (10:09)
[2016-11-19 10:48] VITALS: RESP 18
[2016-11-19 11:38] VITALS: BP 126/80; PULSE 71; O2SAT 97
[2016-11-20] MEDS ORDERED: IOPAMIDOL (ISOVUE-300) 100 ML BTL ONE (09:15)
== END 2016-11-19 11:39 | disposition home or self-care (01) ==
PROC: 0T25X0Z Change Drainage Device in Kidney, External Approach (ICD-10-PCS; principal; 2016-11-19)
DX: T83.022A Displacement of nephrostomy catheter, initial encounter (principal); I10 Essential (primary) hypertension; Y73.2 Prosthetic and other implants, materials and accessory gastroenterology and urology devices associated with adverse incidents
CPT/HCPCS: 50435; 75984; 96365; 99284; C1729; C1769; J0696; J1644; J3010; Q9967

== ENCOUNTER 2016-11-21 06:39 | Emergency (ER) | payer OTHER ==
--- NOTE | 2016-11-21 07:08 | EDPHY ---
H & P Time Seen by Provider: 11/21/16 06:58 HPI/ROS: Chief complaint. Nephrostomy tube leaking HPI. 46-year-old male presents emergency department with leaking nephrostomy tube. The dressing on his right flank surrounding the nephrostomy to is wet. This began at 4:00 a.m. today when he noticed that his pajamas in that area were wet. The patient had percutaneous nephrostomy tube placed on November 09 secondary to acute kidney injury because of right ureteral stone. He had an elevated creatinine and potassium. He was then seen in our emergency department on November 17 because it was leaking. Apparently at that time the stopcock was not aligned. He was then seen again on November 18 in the ED and the stopcock was supposedly removed after the patient again presented with leaking nephrostomy tube. He was to see Dr. vance in interventional radiology. On November 19 the patient was seen again for leaking nephrostomy tube and the nephrostomy tube was changed. Apparently the stopcock had not been previously removed. The patient was fine yesterday and then at 4:00 a.m. today noticed leakage. He has no pain or fever. The drainage is similar to his previous leakage. The patient tells me that he is awaiting kidney stone removal by Dr. Dozier and then the nephrostomy tube can be subsequently removed. ROS Constitutional. no fever/chills, no weakness Eyes. no problems with vision ENT. no sore throat, no nasal drainage Cardiovascular. no chest pain Respiratory. no shortness of breath, no cough Abdominal. No abdominal pain or vomiting. Leaking nephrostomy tube . Leaking nephrostomy tube MS. no calf pain/swelling, no neck/back pain, no joint pain Skin. no rash Lymph. no swollen glands Neuro. no headache, no dizziness, no difficulty walking or with speech Past Medical/Surgical History: Recent acute renal injury secondary to obstructive uropathy and kidney stone. Hypothyroid, cardiomegaly, hypertension, kidney stones Social History: Single, nonsmoker, no alcohol Smoking Status: Never smoked Physical Exam: General Appearance: Alert well-developed male no distress vital signs are stable. Initial blood pressure 164/101 Eyes: Pupils equal and round no pallor or injection. ENT, Mouth: Mucous membranes are moist. Respiratory: There are no retractions, lungs are clear to auscultation. Cardiovascular: Regular rate and rhythm. Gastrointestinal: Abdomen is soft and nontender, no masses, bowel sounds normal. The gauze around the nephrostomy to right flank is saturated with urine Neurological: Awake and alert, sensory and motor exams grossly normal. Skin: Warm and dry, no rashes. Musculoskeletal: Neck is supple nontender. Extremities symmetrical, full range of motion. Psychiatric: Patient is oriented X 3, there is no agitation. Constitutional: Initial Vital Signs Temperature (C) 37.1 C 11/21/16 06:44 Heart Rate 93 11/21/16 06:44 Respiratory Rate 18 11/21/16 06:44 Blood Pressure 164/101 H 11/21/16 06:44 O2 Sat (%) 92 11/21/16 06:44 O2 Delivery Mode Nasal Cannula O2 (L/minute) 2 Allergies/Adverse Reactions: No Known Allergies Allergy (Verified 11/21/16 06:48) Home Medications: Medication Instructions Recorded Levothyroxine [Synthroid 150 mcg 150 mcg PO DAILY06 11/09/16 (*)] Cephalexin [Keflex] 500 mg PO QID #28 cap 11/19/16 Medical Decision Making ED Course/Re-evaluation: Calls have been placed to interventional radiology however they are not here until 8:00 a.m. Call has also been placed to urology for Dr. Dozier or physician web content developer for Dr. Dozier. So for this call has not been returned Patient is kept up-to-date of the phone calls and contact Phone discussion with Dr. Jose at 8:05 a.m.. He will pass the information on to Dr. Dozier. He tells me that Dr. Dozier will be in the office at 9 this morning. [address] Allison who will change out the tube for a larger nephrostomy tube to try to prevent and control leakage 8:20 a.m. I discussed this with the patient. He expresses understanding and agreement. An IV is placed as he previously has had intravenous fentanyl to facilitate the nephrostomy tube change 2:10 p.m. patient is back after having his nephrostomy tube placed. He feels well and has no complaints. No pain. Inspection of the nephrostomy tube looks normal. Patient and I again discussed treatment plan including patient contacting Dr. Dozier for follow-up this week. He expresses understanding and agreement. The patient is encouraged to return for worsening symptoms Differential Diagnosis: Apparently the problem with leaking nephrostomy tube. The patient needs to have his kidney stone removed and then may have the nephrostomy tube removed. I have also considered infection - Data Points Medications Given: Discontinued Medications Sodium Chloride (Ns) 1,000 mls @ 0 mls/hr IV ONCE ONE; Wide Open PRN Reason: Protocol Stop: 11/21/16 08:30 Last Admin: 11/21/16 08:51 Dose: 1,000 mls Departure - Departure Disposition: Home, Routine, Self-Care Clinical Impression: Nephrostomy tube failure with subsequent urine leak Condition: Good Instructions: Nephrostomy Tube Care (ED) Additional Instructions: Call Dr. Dozier today to arrange follow-up appointment in the next 1-2 days to discuss kidney stone removal. Return for worsening symptoms Referrals: Trudy Avina, PAC [Primary Care Provider] - As per Instructions Fady Dozier MD [Medical Doctor] - 1-2 days without fail
[2016-11-21] MEDS ORDERED: NS 1,000 ML IV ONE (08:29)
[2016-11-21] MEDS ORDERED: IOPAMIDOL (ISOVUE-300) 100 ML BTL ONE (11:45)
[2016-11-21] MEDS ORDERED: fentaNYL 100 MCG/2 ML INJ ONE (12:05)
[2016-11-21 14:31] VITALS: BP 140/81; PULSE 71; RESP 17; TEMP 97.9; O2SAT 97
== END 2016-11-21 14:40 | disposition home or self-care (01) ==
DX: T83.032A Leakage of nephrostomy catheter, initial encounter (principal); I10 Essential (primary) hypertension; Y82.8 Other medical devices associated with adverse incidents
CPT/HCPCS: 75984; 96360; 99284; C1729; C1769; J1644; J3010; Q9967

== ENCOUNTER 2016-11-30 06:33 | Observation (INO) | payer OTHER ==
--- NOTE | 2016-11-29 17:34 | GHP ---
[f rep st] PREOP HISTORY AND PHYSICAL ADMISSION DIAGNOSIS: Right ureteral calculus. HISTORY OF PRESENT ILLNESS: This 46-year-old gentleman who has been in renal failure and had nephrostomy tube placed. He has right renal calculi, right ureteral calculus. He is admitted for ureteroscopy. Options of therapy were discussed. Written and verbal consent were obtained. He is admitted for the above procedure. MEDICATIONS: Levothyroxine. PAST MEDICAL HISTORY: Heart disease, hypertension, hydronephrosis, and he has been requiring oxygen. PAST SURGERIES: Tonsillectomy. PHYSICAL EXAM: VITAL SIGNS: Stable. CHEST: Clear. HEART: Regular rate and rhythm. ABDOMEN: Obese. LOWER EXTREMITIES: Normal. PLAN: At the present time, he is admitted for ureteroscopic removal of the calculi. Indications, complications, options have been discussed. Written and verbal consent was obtained. /[id number]/MODL MTDD
--- NOTE | 2016-11-30 06:56 | PDHPUP ---
History & Physical Update H&P update statement: This history and physical update is based on an assessment of the patient which was completed after admission or registration (within 24 hours), but prior to the surgery/procedure. H&P changes: none
[2016-11-30] MEDS ORDERED: ceFAZolin 2 GM/DEXTROSE 100 ML IV ONE (07:35)
[2016-11-30] MEDS ORDERED: LIDOCAINE 1% 2 ML INJ ID PRN (07:36)
[2016-11-30] MEDS ORDERED: LR 1,000 ML IV ONE (07:36)
--- NOTE | 2016-11-30 08:51 | PDANEPAE ---
ANE Past Medical History - Cardiovascular History Hx Hypertension: Yes Hx Arrhythmias: No Hx Chest Pain: No Hx Coronary Artery / Peripheral Vascular Disease: No Hx CHF / Valvular Disease: No Hx Palpitations: No - Pulmonary History Hx COPD: Yes Hx Asthma/Reactive Airway Disease: No Hx Recent Upper Respiratory Infection: No Hx Oxygen in Use at Home: Yes O2 in Use at Home (L/minute): O2 at 3L NC with concentrator 3liter/min - Neurologic History Hx Cerebrovascular Accident: No Hx Seizures: No Hx Dementia: No - Endocrine History Hx Diabetes: No Hypothyroid: Yes - Renal History Hx Renal Disorders: Yes - Liver History Hx Hepatic Disorders: No - Neurological & Psychiatric Hx Hx Neurological and Psychiatric Disorders: No - Cancer History Hx Cancer: No - Congenital Disorder History Hx Congenital Disorders: No - GI History Hx Gastrointestinal Disorders: No - Chronic Pain History Chronic Pain: No ANE Review of Systems - Exercise capacity Exercise capacity: <4 METS METS (RN): 4 METS - Systems Respiratory: Reports: shortness of breath (picwickian syndrome, pulmonary insufficiency secondary to obesity, no cardiac meds now) ANE Patient History - Allergies Allergies/Adverse Reactions: No Known Allergies Allergy (Verified 11/29/16 14:30) - Home Medications Home medications: home medication list seen and reviewed Home Medications: Levothyroxine [Synthroid 150 mcg (*)] 150 mcg PO DAILY06 11/09/16 [Last Taken 08:00] - NPO status NPO Since - Liquids (Date): 11/29/16 NPO Since - Liquids (Time): 21:00 NPO Since - Solids (Date): 11/29/16 NPO Since - Solids (Time): 21:00 - Smoking Hx Smoking Status: Never smoked ANE Labs/Vital Signs - Vital Signs Blood Pressure: 131/86 Heart Rate: 109 Respiratory Rate: 15 O2 Sat (%): 93 Height: 172.72 cm Weight: 145.15 kg ANE Physical Exam - Airway Neck exam: decreased ROM, short neck Mouth exam: normal dental/mouth exam - Pulmonary Pulmonary: reduced air movement - Cardiovascular Cardiovascular: regular rate and rhythym - ASA Status ASA Status: III (morbid obesity) ANE Anesthesia Plan Anesthesia Plan: general endotracheal anesthesia (anticipate difficult airway plan glidescope)
[2016-11-30] MEDS ORDERED: LIDOCAINE 2% JELLY 20 ML (UROJECT) ONE (08:53)
[2016-11-30] MEDS ORDERED: IOPAMIDOL (ISOVUE-M 300) 15 ML VIAL ONE (08:54)
[2016-11-30] MEDS ORDERED: fentaNYL 100 MCG/2 ML INJ ONE (09:09)
[2016-11-30] MEDS ORDERED: PROPOFOL 200 MG/20 ML VIAL ONE (09:09)
[2016-11-30] MEDS ORDERED: MIDAZOLAM 2 MG/2 ML VIAL ONE ×2 (09:09)
[2016-11-30] MEDS ORDERED: ceFAZolin 3 GM in D5W 100 ML IV ONE (09:30)
[2016-11-30] MEDS ORDERED: ACETAMINOPHEN 500 MG TAB PO PRN (10:33)
[2016-11-30] MEDS ORDERED: ONDANSETRON 4 MG/2 ML VIAL IVP PRN ×2 (10:33→11:07)
[2016-11-30] MEDS ORDERED: NALOXONE HCL 0.4 MG/ML INJ IVP PRN (10:33)
[2016-11-30] MEDS ORDERED: ACETAMINOPHEN 325 MG TAB PO PRN (11:07)
[2016-11-30] MEDS ORDERED: ONDANSETRON DISINTEGRATING 4 MG TAB PO PRN (11:07)
[2016-11-30] MEDS ORDERED: oxyCODONE IR 5 MG TAB PO PRN (11:07)
--- NOTE | 2016-11-30 11:14 | POSTOPPROG ---
Post Op Note Date of Operation: 11/30/16 Surgeon: Fady Dozier Anesthesiologist: Kemar Anesthesia: GET(General Endotracheal) Pre-op Diagnosis: rt stone Post-op Diagnosis: same Indication: stonew Procedure: ureteroscopy Inf/Abcess present in the surg proc area at time of surgery?: No EBL: Minimal Complications: none Drains: Other (stent and herrmann) Specimen(s): none--dictated
[2016-11-30] MEDS ORDERED: NS 1,000 ML IV SCH (11:15)
--- NOTE | 2016-11-30 11:26 | PDANEPAE ---
ANE Past Medical History - Cardiovascular History Hx Hypertension: Yes Hx Arrhythmias: No Hx Chest Pain: No Hx Coronary Artery / Peripheral Vascular Disease: No Hx CHF / Valvular Disease: No Hx Palpitations: No - Pulmonary History Hx COPD: No Hx Asthma/Reactive Airway Disease: No Hx Recent Upper Respiratory Infection: No Hx Oxygen in Use at Home: Yes O2 in Use at Home (L/minute): O2 at 3L NC with concentrator 3liter/min - Neurologic History Hx Cerebrovascular Accident: No Hx Seizures: No Hx Dementia: No - Endocrine History Hx Diabetes: No Hypothyroid: Yes - Renal History Hx Renal Disorders: Yes - Liver History Hx Hepatic Disorders: No - Neurological & Psychiatric Hx Hx Neurological and Psychiatric Disorders: No - Cancer History Hx Cancer: No - Congenital Disorder History Hx Congenital Disorders: No - GI History Hx Gastrointestinal Disorders: No - Chronic Pain History Chronic Pain: Yes (low back pain) ANE Review of Systems - Exercise capacity METS (RN): 4 METS ANE Patient History - Allergies Allergies/Adverse Reactions: No Known Allergies Allergy (Verified 11/29/16 14:30) - Home Medications Home Medications: Levothyroxine [Synthroid 150 mcg (*)] 150 mcg PO DAILY06 11/09/16 [Last Taken 08:00] - NPO status NPO Since - Liquids (Date): 11/29/16 NPO Since - Liquids (Time): 21:00 NPO Since - Solids (Date): 11/29/16 NPO Since - Solids (Time): 21:00 - Smoking Hx Smoking Status: Never smoked ANE Labs/Vital Signs - Vital Signs Blood Pressure: 131/86 Heart Rate: 109 Respiratory Rate: 15 O2 Sat (%): 93 Height: 172.72 cm Weight: 145.15 kg
--- NOTE | 2016-11-30 12:57 | POSTANESTH ---
Post Anesthetic Evaluation Cardiovascular Status: Normal, Stable Respiratory Status: Similar to Pre-op Cond. Level of Consciousness/Mental Status: Can Participate in Eval Pain Control: Adequate, Prn Tx Ordered (GA tolerated well, no incease in O2 requirement)
--- NOTE | 2016-11-30 14:39 | GOP ---
[f rep st] OPERATIVE REPORT DATE OF OPERATION: 11/30/2016 SURGEON: Fady Dozier MD PREOPERATIVE DIAGNOSIS: 1. Right ureteral obstruction from calculus. 2. Nephrolithiasis. POSTOPERATIVE DIAGNOSIS: 1. Right ureteral obstruction from calculus. 2. Nephrolithiasis. PROCEDURE PERFORMED: FINDINGS: DESCRIPTION OF PROCEDURE: PROCEDURE: 1. Cystoscopy with retrograde ureteral pyelogram and interpretation. 2. Ureteral dilation with ureteral access sheath. 3. Laser lithotripsy of nephrolithiasis. 4. Placement of a ureteral stent. After appropriate time-out and general anesthesia, he was prepped and draped in normal sterile fashi on in dorsal lithotomy position. He did have significant intertrigo perineal candidiasis with odor; no skin ulcers, but did have diffuse inflammatory reaction to the fungal infection. Scrotum conten ts were normal. After the prep and drape and a time-out, I was able to pass the cystoscope into the bladder. He had mild BPH. Bladder had no tumor, stones, foreign bodies, or diverticula. Right ur eteral orifice was cannulated with a Pollack catheter, and retrograde revealed a normal ureter with a nephrostomy tube in place. I was able to pass the ureteral access sheath over a Sensor wire and t hen, at that point, visualized the ureter. There was proximal ureteral edema but no stones identifi ed in the ureter. At that point, visualizing the renal pelvis, he had Gurwinder plaques and several p apilla, and they were lasered with the Holmium laser. In the lower pole calyx, he had multiple smal l (1 mm) calculi that were dislodged with the scope. I tried to grasp and extract them with a baske t, but the basket in that calyx would not really go in and grasp the stones to free them up. At ramakrishna t point, re-visualized the renal pelvis and the collecting system to make sure there was no signific ant stone size. The stone burden were the multiple little stones that were dusted and did not remov e them because the extraction process with the basket was not really possible. Then a Sensor wire w as passed up into the upper pole collecting system, and then I removed the entire scope and ureteral access sheath under direct vision. There was no significant trauma or retained stones in the urete r. Then, a 4.7 multi-length stent was passed over the Sensor wire, curled in the renal pelvis and c urled in the bladder and Uro jet placed into the urethra. A 16 Carter catheter placed. He will be a dmitted just as observation overnight because he lives by himself. Will have nephrostomy tube pulle d tomorrow, and he will be discharged home with the stent. He will follow up with me in the office in approximately a week to have the stent removed. /[id number]/MODL
[2016-11-30] MEDS: ECONAZOLE 1% CREAM TP SCH (23:26)
[2016-12-01 03:18] VITALS: O2SAT 95
[2016-12-01 07:51] VITALS: BP 134/92; PULSE 76; RESP 74; TEMP 98.1
[2016-12-01] MEDS: ECONAZOLE 1% CREAM TP SCH (08:21)
--- NOTE | 2016-12-01 08:36 | WOCRNPDOC ---
WOCRN Advanced Assessment Note - Skin Integrity Problem, Advanced Assess Bilateral Groin Dressing Type: Open to Air Exudate Amount: None Exudate Characteristic(s): None [place] Wound Tissue: Intact Wound Bed Color: Red Skin Integrity Problem Comment: Denuded skin noted in bilateral groin folds, consistent with moisture/friction-related skin damage. Skin is red and raw, w/ mirrored breakdown in both upper and lower skin fold. Advised placement of Interdry sheets to reduce both moisture and friction. Site assessed w/ line assembler Emma.
--- NOTE | 2016-12-01 14:46 | GDS ---
[f rep st] DISCHARGE SUMMARY PREOPERATIVE DIAGNOSES: 1. Right ureteral obstruction from calculus. 2. Nephrolithiasis. POSTOPERATIVE DIAGNOSES: 1. Right ureteral obstruction from calculus. 2. Nephrolithiasis. HOSPITAL COURSE: This pleasant gentleman was evaluated in our office, and after discussion of his k idney stones and all the management options, he elected to have a cystoscopy with retrograde uretera l pyelogram, ureteral dilation, laser lithotripsy of stone with a stent. He also had a nephrostomy tube placed. He is being discharged home today in good condition after having a nephrostogram with the nephrostomy tube removed. He is to follow up in our office in 10-14 days for stent removal. /[id number]/MODL
[2016-12-05 19:00] LABS: SOURCE OF STONE RENAL STONE
[2016-12-05 19:02] LABS: NIDUS NOT OBSERVED
== END 2016-12-01 11:41 | disposition home or self-care (01) ==
LOC: F1N 06:33 → F3E 12:11
PROVIDERS: ADMIT Specialist; ATTEND Specialist
PROC: 0TF68ZZ Fragmentation in Right Ureter, Via Natural or Artificial Opening Endoscopic (ICD-10-PCS; principal; 2016-11-30 08:30)
PROC: BT1D1ZZ Fluoroscopy of Right Kidney, Ureter and Bladder using Low Osmolar Contrast (ICD-10-PCS; 2016-11-30 08:30)
PROC: 0TP9X0Z Removal of Drainage Device from Ureter, External Approach (ICD-10-PCS; 2016-11-30 08:30)
DX: N13.2 Hydronephrosis with renal and ureteral calculous obstruction (principal); I11.9 Hypertensive heart disease without heart failure
CPT/HCPCS: 50389; 52353; 74425; 76001; C1758; C1769; C1894; G0378; 82365-90; C2625; J0690; J2250; J2704; J3010; Q9967

== ENCOUNTER → 2017-01-09 | Outpatient (CLI) | payer OTHER | LOC: FIMAGING 10:18 | PROVIDERS: ATTEND Specialist | DX: Z87.442 Personal history of urinary calculi (principal) ==

== ENCOUNTER → 2017-01-30 | Outpatient (CLI) | payer OTHER | LOC: FCPNEURO 23:19 | PROVIDERS: ATTEND Internal Medicine Sleep Medicine | DX: G47.33 Obstructive sleep apnea (adult) (pediatric) (principal); G47.31 Primary central sleep apnea; G47.36 Sleep related hypoventilation in conditions classified elsewhere ==

== ENCOUNTER 2017-06-02 14:17 | Observation (INO) | payer OTHER ==
--- NOTE | 2017-06-02 16:41 | EDPHY ---
H & P Time Seen by Provider: 06/02/17 15:52 HPI/ROS: CHIEF COMPLAINT: "Brain fog " HISTORY OF PRESENT ILLNESS: The patient is a 47-year-old male with a history of hypothyroidism and cardiomegaly who presents to the emergency department with a reported complaint of "brain fog. "The patient also states that "I am bloated because my thyroid medication is off. "Patient states that in the past he has had issues with this thyroid levels and this is caused him to have bloating. He states he has had his symptoms for the past 2 weeks. He states he is taking his medications as normal. He denies headache or neck pain. No chest pain or shortness of breath. No abdominal pain. Patient has had mild loose stools but no significant diarrhea. No dysuria or frequency. REVIEW OF SYSTEMS: My complete review of systems is negative except as mentioned in the HPI. Past Medical/Surgical History: Includes hypothyroidism, enlarged heart, hypertension, kidney stones Past surgical history: Nephrostomy, tonsillectomy Social history: Patient does not smoke Smoking Status: Never smoked Physical Exam: 37.1, 132/94, 81, 20, 84% on room air GENERAL: No acute distress, alert. Morbidly obese. HEENT: Eyes normal to inspection, normal pharynx, no signs of dehydration. NECK: No thyromegaly, no lymphadenopathy, supple. RESPIRATORY: Clear to auscultation bilaterally, no rales, rhonchi or wheezing. CVS: Regular rate and rhythm, no rubs, murmurs, or gallops. ABDOMEN: Soft, nontender, nondistended, no organomegaly. Benign BACK: Normal to inspection, no CVA tenderness. SKIN: Normal color, no rash, warm, dry. No pallor. EXTREMITIES: No pedal edema, no calf tenderness, no Homans sign or cords, no joint swelling. NEURO/PSYCH: Alert and oriented x3, normal mood and affect, normal motor sensory exam. No obvious cranial nerve deficit. Constitutional: Initial Vital Signs Temperature (C) 37.1 C 06/02/17 14:41 Heart Rate 81 06/02/17 14:41 Respiratory Rate 20 06/02/17 14:41 Blood Pressure 132/94 H 06/02/17 14:41 O2 Sat (%) 84 L 06/02/17 14:41 O2 Delivery Mode Room Air O2 (L/minute) 4 Allergies/Adverse Reactions: No Known Allergies Allergy (Verified 11/29/16 14:30) Home Medications: Medication Instructions Recorded Levothyroxine [Synthroid 150 mcg 150 mcg PO DAILY06 11/09/16 (*)] Medical Decision Making - Diagnostics Imaging Results: Imaging Impressions Chest X-Ray 06/02/17 16:40 Impression: 1. Bibasilar atelectasis and/or edema. 2. Pulmonary venous congestion. 3. Enlarged cardiac silhouette. ED Course/Re-evaluation: In the emergency department the patient was placed on supplemental oxygen. Laboratory studies, EKG, and chest x-ray were ordered. Chest x-ray report. No focal infiltrate. Sinus rhythm at 73. Normal axis. Normal intervals. I reviewed the patient's laboratory studies. His white count was normal. The patient had an elevated creatinine of 2.2. I compared this with previous values. In November he had a bump in his creatinine to greater than 6. At that time it seemed to be related to nephrolithiasis. TSH is pending. I discussed the results with the patient. I answered all his questions. I contacted the hospitalist service. I discussed the case with Dr. Gibson. He will admit the patient. A CT scan was ordered to evaluate for possible kidney stone causing elevation in his creatinine. Differential Diagnosis: My differential includes but is not limited to hypoxia, hypoxia secondary to obesity, pneumonia, bronchitis, empyema, ACS, acute DC, electrolyte abnormality , sugar abnormality, thyroid disease, myxedema coma - Data Points Laboratory Results: Laboratory Results 06/02/17 16:33 06/02/17 16:33 06/02/17 06/02/17 16:33 16:33 WBC 8.57 10^3/uL 10^3/uL (3.80-9.50) RBC 4.64 10^6/uL 10^6/uL (4.40-6.38) Hgb 12.9 g/dL L g/dL (13.7-17.5) Hct 40.9 % % (40.0-51.0) MCV 88.1 fL fL (81.5-99.8) MCH 27.8 pg L pg (27.9-34.1) MCHC 31.5 g/dL L g/dL (32.4-36.7) RDW 15.7 % H % (11.5-15.2) Plt Count 254 10^3/uL 10^3/uL (150-400) MPV 9.2 fL fL (8.7-11.7) Neut % (Auto) 60.5 % % (39.3-74.2) Lymph % (Auto) 26.0 % % (15.0-45.0) [place] % (Auto) 7.8 % % (4.5-13.0) Eos % (Auto) 4.2 % % (0.6-7.6) Baso % (Auto) 0.7 % % (0.3-1.7) Nucleat RBC Rel Count 0.0 % % (0.0-0.2) Absolute Neuts (auto) 5.18 10^3/uL 10^3/uL (1.70-6.50) Absolute Lymphs (auto) 2.23 10^3/uL 10^3/uL (1.00-3.00) Absolute Monos (auto) 0.67 10^3/uL 10^3/uL (0.30-0.80) Absolute Eos (auto) 0.36 10^3/uL 10^3/uL (0.03-0.40) Absolute Basos (auto) 0.06 10^3/uL 10^3/uL (0.02-0.10) Absolute Nucleated RBC 0.00 10^3/uL 10^3/uL (0-0.01) Immature Gran % 0.8 % % (0.0-1.1) Immature Gran # 0.07 10^3/uL 10^3/uL (0.00-0.10) Sodium 142 mEq/L mEq/L (134-144) Potassium 4.4 mEq/L mEq/L (3.5-5.2) Chloride 96 mEq/L L mEq/L (97-110) Carbon Dioxide 33 mEq/l H mEq/l (22-31) Anion Gap 13 mEq/L mEq/L (8-16) BUN 21 mg/dL mg/dL (7-23) Creatinine 2.2 mg/dL H mg/dL (0.7-1.3) Estimated GFR 32 Glucose 150 mg/dL H mg/dL (70-100) Calcium 8.8 mg/dL mg/dL (8.5-10.4) Troponin I < 0.012 ng/mL ng/mL (0.000-0.034) NT-Pro-B Natriuret Pep 148 pg/mL H pg/mL (0-125) TSH Pending Departure - Departure Disposition: [facility] Inpatient Acute Clinical Impression: Hypoxia, Renal insufficiency Condition: Good Referrals: Trudy Avina, PAC [Primary Care Provider] - As per Instructions
[2017-06-02 16:44] LABS: % IMMATURE GRANULYOCYTES 0.8 % (0.0-1.1); ABSOLUTE IMMATURE GRANULOCYTES 0.07 10^3/uL (0.00-0.10); ADD DIFF? NO; ADD MORPH? NO; ADD SCAN? NO; ATYPICAL LYMPHOCYTE FLAG 0 (0-99); FRAGMENT RBC FLAG 0 (0-99); HEMATOCRIT 40.9 % (40.0-51.0); HEMOGLOBIN 12.9 g/dL (13.7-17.5); LEFT SHIFT FLG 0 (0-99); LIPEMIA HEMOLYSIS FLAG 80 (0-99); MEAN CELL HEMOGLOBIN 27.8 pg (27.9-34.1); MEAN CELL HEMOGLOBIN CONCENTR. 31.5 g/dL (32.4-36.7); MEAN CELL VOLUME 88.1 fL (81.5-99.8); MEAN PLATELET VOLUME 9.2 fL (8.7-11.7); PLATELET CLUMPS FLAG 0 (0-99); PLATELET COUNT 254 10^3/uL (150-400); RED BLOOD CELL COUNT 4.64 10^6/uL (4.40-6.38); RED CELL DISTRIBUTION WIDTH 15.7 % (11.5-15.2)
[2017-06-02 16:57] LABS: ANION GAP 13 mEq/L (8-16); CALCIUM 8.8 mg/dL (8.5-10.4); CARBON DIOXIDE 33 mEq/l (22-31); CHLORIDE 96 mEq/L (97-110); CREATININE 2.2 mg/dL (0.7-1.3); GLOMERULAR FILTRATION RATE 32; GLUCOSE 150 mg/dL (70-100); POTASSIUM 4.4 mEq/L (3.5-5.2); SODIUM 142 mEq/L (134-144)
[2017-06-02 17:31] LABS: TROPONIN I < 0.012 ng/mL (0.000-0.034)
--- NOTE | 2017-06-02 17:35 | CPEKG ---
Heart Rate: 73 RR Interval: 822 P-R Interval: 168 QRSD Interval: 122 QT Interval: 408 QTC Interval: 450 P Ellerbe: 50 QRS Ellerbe: 69 T Wave Ellerbe: 76 EKG Severity - ABNORMAL ECG - EKG Impression: SINUS RHYTHM EKG Impression: NONSPECIFIC INTRAVENTRICULAR CONDUCTION DELAY EKG Impression: BORDERLINE R WAVE PROGRESSION, ANTERIOR LEADS Electronically Signed By: Mechelle Moran 02-Jun-2017 21:34:35
[2017-06-02] MEDS ORDERED: ONDANSETRON DISINTEGRATING 4 MG TAB PO PRN (22:30)
[2017-06-02] MEDS ORDERED: ONDANSETRON 4 MG/2 ML VIAL IVP PRN (22:30)
[2017-06-02] MEDS ORDERED: ACETAMINOPHEN 325 MG TAB PO PRN (22:30)
--- NOTE | 2017-06-02 23:00 | PDGENHP ---
History and Physical - Chief Complaint Brain fog - History of Present Illness 47 yo morbidly obese M w/ CKD and hypothyroid presents with about 2 weeks of what he describes as "brain fog". Patient states he has been feeling foggy with poor concentration over the last 2 weeks. He also describes cold intolerance, dry skin, and abdominal bloating. He has had URI symptoms for the last week or so as well. On presentation he was concerned his thyroid medicine was off as this has happened before. He said about 18 months ago he was found to have a high TSH, which improved with an increase in his LTX dosing. He is currently on 175 mcg daily and takes it appropriately, upon waking on an empty stomach. In the ED TSH was found to be 153 so he was admitted for management. History Information - Allergies/Home Medication List Allergies/Adverse Reactions: No Known Allergies Allergy (Verified 11/29/16 14:30) Home Medications: Levothyroxine [Synthroid 175 mcg (*)] 175 mcg PO DAILY06 06/02/17 [Last Taken 06:00] Multivitamins [Multivitamin (*)] 1 each PO DAILY 06/02/17 [Last Taken 06/02/17 10:00] I have personally reviewed and updated: family history, medical history - Past Medical History Additional medical history: CKD. Hypothyroid. Nephrolithiasis - Family History Positive for: diabetes type II - Social History Smoking Status: Never smoked Review of Systems Review of Systems: ROS: 10pt was reviewed & negative except for what was stated in HPI & below Physical Exam Physical Exam: Temp Pulse Resp BP Pulse Ox 36.9 C 76 20 127/84 H 94 06/02/17 20:42 06/02/17 20:42 06/02/17 20:42 06/02/17 20:42 06/02/17 20:42 O2 (L/minute) 4 Constitutional: no apparent distress, obese Eyes: PERRL, EOMI Ears, Nose, Mouth, Throat: moist mucous membranes, no oral mucosal ulcers Cardiovascular: regular rate and rhythym, other (Distant heart sounds) Respiratory: no respiratory distress, clear to auscultation Gastrointestinal: normoactive bowel sounds, distension Skin: warm, other (Dry skin with mild erythema and scaling; LE changes c/w venous stasis) Musculoskeletal: full muscle strength, no muscle tenderness Neurologic: AAOx3, CN II-XII Intact Psychiatric: interacting appropriately, not anxious Lab Data & Imaging Review 06/02/17 16:33 06/02/17 16:33 WBC 8.57 10^3/uL (3.80-9.50) 06/02/17 16:33 RBC 4.64 10^6/uL (4.40-6.38) 06/02/17 16:33 Hgb 12.9 g/dL (13.7-17.5) L 06/02/17 16:33 Hct 40.9 % (40.0-51.0) 06/02/17 16:33 MCV 88.1 fL (81.5-99.8) 06/02/17 16:33 MCH 27.8 pg (27.9-34.1) L 06/02/17 16:33 MCHC 31.5 g/dL (32.4-36.7) L 06/02/17 16:33 RDW 15.7 % (11.5-15.2) H 06/02/17 16:33 Plt Count 254 10^3/uL (150-400) 06/02/17 16:33 MPV 9.2 fL (8.7-11.7) 06/02/17 16:33 Neut % (Auto) 60.5 % (39.3-74.2) 06/02/17 16:33 Lymph % (Auto) 26.0 % (15.0-45.0) 06/02/17 16:33 [place] % (Auto) 7.8 % (4.5-13.0) 06/02/17 16:33 Eos % (Auto) 4.2 % (0.6-7.6) 06/02/17 16:33 Baso % (Auto) 0.7 % (0.3-1.7) 06/02/17 16:33 Nucleat RBC Rel Count 0.0 % (0.0-0.2) 06/02/17 16:33 Absolute Neuts (auto) 5.18 10^3/uL (1.70-6.50) 06/02/17 16:33 Absolute Lymphs (auto) 2.23 10^3/uL (1.00-3.00) 06/02/17 16:33 Absolute Monos (auto) 0.67 10^3/uL (0.30-0.80) 06/02/17 16:33 Absolute Eos (auto) 0.36 10^3/uL (0.03-0.40) 06/02/17 16:33 Absolute Basos (auto) 0.06 10^3/uL (0.02-0.10) 06/02/17 16:33 Absolute Nucleated RBC 0.00 10^3/uL (0-0.01) 06/02/17 16:33 Immature Gran % 0.8 % (0.0-1.1) 06/02/17 16:33 Immature Gran # 0.07 10^3/uL (0.00-0.10) 06/02/17 16:33 Sodium 142 mEq/L (134-144) 06/02/17 16:33 Potassium 4.4 mEq/L (3.5-5.2) 06/02/17 16:33 Chloride 96 mEq/L (97-110) L 06/02/17 16:33 Carbon Dioxide 33 mEq/l (22-31) H 06/02/17 16:33 Anion Gap 13 mEq/L (8-16) 06/02/17 16:33 BUN 21 mg/dL (7-23) 06/02/17 16:33 Creatinine 2.2 mg/dL (0.7-1.3) H 06/02/17 16:33 Estimated GFR 32 06/02/17 16:33 Glucose 150 mg/dL (70-100) H 06/02/17 16:33 Calcium 8.8 mg/dL (8.5-10.4) 06/02/17 16:33 Troponin I < 0.012 ng/mL (0.000-0.034) 06/02/17 16:33 NT-Pro-B Natriuret Pep 148 pg/mL (0-125) H 06/02/17 16:33 TSH 153.000 uIU/mL (0.465-4.680) H 06/02/17 16:33 Imaging Review: CT A/P: Impression: 1. Distal left ureteral calculus measuring 4 mm in diameter with resulting left-sided obstructive uropathy. The oedema around the left kidney, left ureter and in the paracolic gutters is probably related to a urinoma. 2. Decrease in nephrolithiasis. 3. No change in pelvic adenopathy. 4. See above report for additional findings. CXR Impression: 1. Bibasilar atelectasis and/or edema. 2. Pulmonary venous congestion. 3. Enlarged cardiac silhouette. Visualized and Interpreted EKG results: Yes EKG Interpretation: Positive for: normal sinsus rhythm, other (Nonspecific intraventricular conduction delay) Assessment & Plan Assessment: 47 yo morbidly obese M w/ hypothyroid and CKD presents w/ brain fog and found to have markedly elevated TSH. Plan: 1. Hypothyroid - With markedly elevated TSH of 153 on admission; likely explanatory of patient's chief complaint of "brain fog". Symptoms of cold intolerance, dry skin, abdominal bloating, and non-pitting edema also consistent. Unclear why oral LTX, which he is compliant with and takes appropriately, is not working adequately. He takes 175 mcg qD, which equates to ~1.2 mcg/kg. It is possible increasing dose closer to recommended 1.6 mcg/kg ( 225 mcg) may be helpful. - Will treat with LTX IV for now noting he is symptomatic (300 mcg loading dose + 125 mcg IV qD) - Endocrinology consult to determine strategy moving forward, additional considerations, and to establish follow up as an outpatient 2. RAFA on CKD - Cr of 2.2 on admission, baseline appears to be in 1.7-2.0 range. Unclear etiology for CKD aside from multiple bouts of nephrolithiasis, one of which resulted in RAFA with Cr rise to >6. He does have some obstructive uropathy on imaging currently but this is asymptomatic. - Monitor BMP - Would recommend outpatient renal follow-up 3. ?Acute hypoxic respiratory failure - Patient requiring 4L currently to maintain oxygenation. Body habitus strongly suggestive of MARTHA/OHS. He has no symptoms of ongoing infection but did have recent URI. CXR shows bibasilar atelectasis c/w OHS. - Will order IS, ambulate as able - Wean O2 as able but may need home O2 4. Hx nephrolithiasis - Patient currently asymptomatic although CT does show L obstructive uropathy with 4 mm stone, but this is improved from prior imaging. 5. Morbid obesity c/b MARTHA - Compliant w/ nighttime CPAP. BMI 48. Cardiomegaly seen on CXR, would not be surprised if he has diastolic dysfunction as well. Diet - Regular Code - Full Ppx - LMWH Dispo - Admit to observation status
[2017-06-02] MEDS ORDERED: LEVOTHYROXINE 100 MCG/5 ML SYR IVP ONE (23:45)
[2017-06-03 04:47] LABS: % IMMATURE GRANULYOCYTES 0.6 % (0.0-1.1); ABSOLUTE IMMATURE GRANULOCYTES 0.06 10^3/uL (0.00-0.10); ADD DIFF? NO; ADD MORPH? NO; ADD SCAN? NO; ATYPICAL LYMPHOCYTE FLAG 0 (0-99); FRAGMENT RBC FLAG 0 (0-99); HEMATOCRIT 40.2 % (40.0-51.0); HEMOGLOBIN 12.4 g/dL (13.7-17.5); LEFT SHIFT FLG 0 (0-99); LIPEMIA HEMOLYSIS FLAG 80 (0-99); MEAN CELL HEMOGLOBIN 27.3 pg (27.9-34.1); MEAN CELL HEMOGLOBIN CONCENTR. 30.8 g/dL (32.4-36.7); MEAN CELL VOLUME 88.5 fL (81.5-99.8); MEAN PLATELET VOLUME 9.6 fL (8.7-11.7); PLATELET CLUMPS FLAG 0 (0-99); PLATELET COUNT 257 10^3/uL (150-400); RED BLOOD CELL COUNT 4.54 10^6/uL (4.40-6.38); RED CELL DISTRIBUTION WIDTH 15.9 % (11.5-15.2)
[2017-06-03 04:49] LABS: ANION GAP 10 mEq/L (8-16); CALCIUM 8.9 mg/dL (8.5-10.4); CARBON DIOXIDE 35 mEq/l (22-31); CHLORIDE 97 mEq/L (97-110); CREATININE 2.3 mg/dL (0.7-1.3); GLOMERULAR FILTRATION RATE 31; GLUCOSE 155 mg/dL (70-100); POTASSIUM 4.3 mEq/L (3.5-5.2); SODIUM 142 mEq/L (134-144)
[2017-06-03] MEDS ORDERED: FLU VACC QS 2017-18 (3YR+)/PF 0.5 ML SYR (FLUARIX QUAD) IM ONE (08:37)
[2017-06-03] MEDS ORDERED: PNEUMOCOCCAL 0.5ML VACCINE VIAL IM ONE (08:37)
[2017-06-03] MEDS ORDERED: ENOXAPARIN 40 MG/0.4 ML SYR SC SCH (09:00)
[2017-06-03] MEDS ORDERED: NS 1,000 ML IV SCH (09:15)
[2017-06-03] MEDS ORDERED: TAMSULOSIN HCL 0.4 MG CAP PO SCH (09:30)
[2017-06-03] MEDS ORDERED: LEVOTHYROXINE 100 MCG/5 ML SYR IVP SCH (10:00)
[2017-06-03 10:17] LABS: T3 (TRIIODOTHYRONINE) TOTAL 0.46 ng/mL (0.970-1.690)
[2017-06-03 10:41] LABS: COLOR YELLOW; LEUKOCYTE ESTERASE,URINE NEGATIVE (NEGATIVE); NITRITE,URINE NEGATIVE (NEGATIVE)
[2017-06-03 11:50] VITALS: O2SAT 92
--- NOTE | 2017-06-03 12:09 | WOCRNPDOC ---
WOCRN Advanced Assessment Note - Skin Integrity Problem, Advanced Assess Bilateral Lower Leg Dressing Type: Open to Air Exudate Amount: None Exudate Characteristic(s): None Integumentary Issue Intervention: Lotion/Cream Applied (nursing to apply Attrac- tain cream) [place] Wound Tissue: Blanching, Erythema, Swollen (+3 pitting edema), Hemosiderin Staining, Venous Dermatitis Skin Integrity Problem Comment: Bilateral lower extremities w/ skin changes consistent w/ venous stasis. There is hemosiderin staining throughout the tissue on both lower legs, as well as intensey dry, peeling skin. Patient reports h/o wearing compression stockings, but says he hasn't worn them for "3- 4 years" because they are "too tight." He agreed to try compression again while inpatient, w/ the knowledge that he can refuse to wear if he finds them uncomfortable. Measured both legs for moderate level of compression (20mmHg) and will see how he tolerates. In addition, will have nursing apply Attrac-tain lotion BID w/ urea and alpha hydroxy to facilitate exfoliation of dry skin on lower legs. report given to stencil inspector Lizet, and Spandagrip compression size G sent down.
--- NOTE | 2017-06-03 14:15 | HOSPPROG ---
Hospitalist Progress Note Assessment/Plan: 47 yo M with PMH of hypothyroid and morbid obesity as well as ckd presenting with somnolence and generalized edema in the setting of profound hypothyroid # hypothyroid: with TSH of 153 and low ft4/t3 but slightly higher than the last time his TSH was very high. He notes that he has never been seen by an dietary worker and the last time he was here was told to increase his dose of LT4. He denies issues with non compliance. Discussed with Dr. Young of endocrinology and she notes that this is likely related to either malabsorption or thyroid hormone resistance. Given that patient overall does not appear to be especially symptomatic and clinically does not have acute CHF, will get echo and so long as that is reassuring will dc on double the lt4 dose and have patient fu with endocrine in the next week. # kenneth on ckd: with baseline creatinine of approximately 2.0 and currently only slightly up from baseline, does have e/o obstructive uropathy in association with small distal ureteral calculus that is likely contributing. Will continue flomax and fluids for now, patient does not have any flank or abd pain or urinary sxs at this time. # edema: non pitting and in the setting of profound hypothyroid as above, BNP elevated and concerns that patient has had low thyroid for quite some time and for that reason would like to rule out subacute CHF with echo as above. # ureterolithiasis: as above, hx of recurrent stones # dispo: observation, if echo ok will likely dc later today Patient new to my care. Old records reviewed and summarized as above. Care plan reviewed with Dr. Young of endocrinology as above. Subjective: no significant overnight events, patient is feeling better already today, he denies any pain or nausea Objective: Vital Signs Temp Pulse Resp BP Pulse Ox 36.9 C 88 23 H 134/96 H 92 06/03/17 11:49 06/03/17 11:49 06/03/17 11:49 06/03/17 11:49 06/03/17 11:49 Laboratory Results 06/03/17 04:06 06/03/17 04:06 06/02/17 06/03/17 06/04/17 05:59 05:59 05:59 Intake Total 550 500 Output Total 650 Balance -100 500 awake alert anicteric op clear, significant excess soft tissue of the neck cta b rrr no mrg soft nt nd no cce warm dry well perfused oriented appropriate - Time Spent With Patient Time Spent with Patient: greater than 35 minutes Time Spent with Patient: Greater than 35 minutes spent on this patients care, greater than 50% of time spent counseling, educating, and coordinating care regarding the above mentioned plan. ICD10 Worksheet Patient Problems: Problems Problem Status Onset Uropathy, obstructive Acute Acute renal failure Acute Hyperkalemia Acute Hyperglycemia Acute Hypovolemia Acute Hypoxia Acute Renal insufficiency Acute
--- NOTE | 2017-06-03 14:50 | ASMTCMCOM ---
CM Note CM Note Notes: Chart reviewed. Patient here with thyroid dysfunction He normally lives in an apartment that is currently being renovated. He has no identifiable needs. No therapy evaluations. He normally lives independent and is close to his sister who lives in [place]. CM available should other needs arise. Date Signed: 06/03/2017 02:50 PM Electronically Signed By:Yeimi Lazar RN
--- NOTE | 2017-06-03 15:48 | PDDCSUM ---
Discharge Summary Discharge Summary: Dates of service 06/03-06/04/17 Consultations: phone consult with endocrine Procedures: performed Hospital course by problem: # hypothyroid: with TSH of 153 and low ft4/t3 but slightly higher than the last time his TSH was very high. He has not had f/u with endocrinology but has been compliant with lt4 of 175mcg/day. Will increase to 350 per endo recs and endocrinology will have him f/u with them in the coming week. # kenneth on ckd: with baseline creatinine of approximately 2.0 and currently only slightly up from baseline, does have e/o obstructive uropathy in association with small distal ureteral calculus that is likely contributing. Will continue flomax and fluids for now, patient does not have any flank or abd pain or urinary sxs at this time. Discussed with him at length that he will need to have his renal function followed up with by his pcp and he agrees to do that. # edema: non pitting and in the setting of profound hypothyroid as above, echo limited by body habitus but without evidence of CHF # ureterolithiasis: as above, hx of recurrent stones # dispo: dc home Patient to f/u with his pcp and endocrinology as scheduled > 35 min spent in dc more than half in coordination of care
[2017-06-03 15:49] VITALS: BP 136/87; PULSE 80; RESP 16; TEMP 98.7
--- NOTE | 2017-06-03 16:10 | ECHO ---
[email or web address] [address] [address] Main: [phone] Fax: Transthoracic Echocardiogram Name: KWABENA RED MR#: [id number] Study Date: 06/03/2017 Study Time: 01:58 PM Date of : 1970 Age: 47 year(s) Height: 172.7 cm (68 in.) Weight: 145.15 kg (320 lb.) BSA: 2.5 m2 Gender: Male Examination: Echo Indication: severe hypothyroid, edema, CHF? Image Quality: Technically Difficult Contrast: Requested by: Chitra Lim BP: / Heart Rate: Rhythm: Normal sinus rhythm Indication: severe hypothyroid, edema, CHF? Procedure Staff Central Office Repairer: Nerissa Stewart Reading Physician: Vinay Zelaya Requesting Provider: Conclusions: Technically limited study with poor acoustic windows. Normal left ventricular size and systolic function. LVEF estimated at 50-55%. Mild concentric left ventricular hypertrophy. Cannot exclude regional wall motion abnormalities due to poor endocardial definition. Grossly normal cardiac valves without significant stenosis or insufficiency. Trivial pericardial effusion. Measurements: Chambers Valvular Assessment AV/MV Valvular Assessment TV/PV Normal Normal Normal Name Value Range Name Value Range Name Value Range Ao Ligia (MM): 3.6 cm (2.2 cm-3.7 AV Vmax: 0.90 m/s (1 m/s-1.7 PV Vmax: 0.62 m/s (0.6 m/s-0.9 cm) m/s) m/s) IVSd (MM): 1.3 cm (0.6 cm-0.9 AV maxP mmHg ( - ) PV PGmax: 2 mmHg ( - ) cm) LVOT Vmax: 0.84 m/s (0.7 m/s-1.1 IVSs (MM) 1.4 cm ( - ) m/s) LVDd (MM): 5.0 cm (4.2 cm-5.9 MV E Vmax: 0.67 m/s ( - ) cm) MV A Vmax: 0.50 m/s ( - ) LVDs (MM): 3.5 cm (2 cm-3.8 MV E/A: 1.34 ( - ) cm) LVPWd (MM): 1.3 cm (0.6 cm-1 cm) LVPWs (MM) 1.9 cm ( - ) LVEF (MM): 58 (>=55 %) Continued Measurements: Chambers Valvular Assessment AV/MV Name Value Name Value LADs Lon.0 cm MV DecTime: 137 m/s LA Area: 22.7 cm2 MV E/E' Septal: 8.10 LA Volume: 57 ml MV E/E' Lateral: 7.30 Patient: KWABENA RED Study Date: 06/03/2017 Page 1 of 2 01:58 PM LA Volume Index: 22.8 ml/m2 Additional Vessels Name Value Ao Ascendin.4 cm Findings: Left Ventricle: Moderate concentric LV hypertrophy. Grossly normal LV size and and low normal function. Cannot rule out wall motion abnormalities due to poor endocardial definition. Estimated ejection fraction 50-55%. Right Ventricle: Right ventricle is not well visualized. Left Atrium: The left atrium is normal in size. Right Atrium: The right atrium is normal in size. Mitral Valve: The mitral valve is normal in appearance. There is no mitral valve regurgitation. No mitral stenosis is present. Aortic Valve: Aortic valve is not well visualized. There is no aortic valve regurgitation. No aortic valve stenosis is present. Tricuspid Valve: The tricuspid valve appears normal. There is no significant tricuspid valve regurgitation. Pulmonary artery pressure is not obtained due to inadequate TR jet. Pulmonic Valve: Pulmonary valve not well visualized. There is no pulmonic regurgitation seen. Aorta: Normal size aortic root measuring 3.6 cm. Normal size ascending aorta measuring 3.4 cm. Pericardium: Trivial pericardial effusion. Exam Comments: Very technically difficult and suboptimal echocardiogram due to severe obesity.. (No Signature Object) Patient: KWABENA RED Study Date: 06/03/2017 Page 2 of 2 01:58 PM [id number]
[2017-06-04] MEDS ORDERED: MULTIVITAMINS 1 EACH TAB PO SCH (09:00)
--- NOTE | 2017-06-04 14:08 | ASDISCHSUM ---
Discharge Information Plan Status: Medically Cleared to Leave: Discharge Date:06/03/2017 06:23 PM CM D/C Disposition: ADT D/C Disposition:Home, Routine, Self-Care Projected Discharge Date:06/03/2017 06:23 PM Transportation at D/C: Discharge Delay Reason: Follow-Up Date:06/03/2017 06:23 PM Discharge Slot: Final Diagnosis: Placement Information Patient Contact Information Contact Name:MICHA Relationship:Sister Address: Work Phone: City: [facility] Phone: State/[place] Code: Email: Financial Information Financial Class:HMO and PPO Plans Primary Plan Desc:[employer] Primary Plan Number:[id number] Secondary Plan Desc: Secondary Plan Number: Assessment Information BC CM Progress Note CM Note CM Note Notes: Chart reviewed. Patient here with thyroid dysfunction He normally lives in an apartment that is currently being renovated. He has no identifiable needs. No therapy evaluations. He normally lives independent and is close to his sister who lives in [place]. CM available should other needs arise. Date Signed: 06/03/2017 02:50 PM Electronically Signed By:Yeimi Lazar RN Intervention Information
== END 2017-06-03 18:23 | disposition home or self-care (01) ==
LOC: F1N 18:54
PROVIDERS: ADMIT Internal Medicine; ATTEND Internal Medicine
DX: E03.9 Hypothyroidism, unspecified (principal); N17.9 Acute kidney failure, unspecified; N18.9 Chronic kidney disease, unspecified; R60.9 Edema, unspecified; R09.02 Hypoxemia; N20.1 Calculus of ureter; Z23 Encounter for immunization; I51.7 Cardiomegaly; E66.01 Morbid (severe) obesity due to excess calories; Z68.42 Body mass index [BMI] 45.0-49.9, adult; Z87.442 Personal history of urinary calculi
CPT/HCPCS: 71020; 74176; 90471; 93005; 93306; G0378; 84480-90; 84481-90; G0008; G0009; J1650